=== PATIENT | female | born 1960 | race Caucasian/White ===

== ENCOUNTER → 2016-04-26 | Outpatient (CLI) | payer OTHER ==
[~2016-04-26] MED LIST: /ALBU4TAB INH; /CELE20CA; ACTI300C; ADV500INH INH; BIAX500T PO; CIPRPOW8; FLAG500T; No Historical Meds; OCEA0.65; PRED10TA PO; PRED5SOL2 PO; TESS100C PO
[2016-04-26 10:14] LABS: MEAN CORPUSCULAR HEMOGLOBIN 28.3 pg (27.0-33.0); MEAN CORPUSCULAR HGB CONC 34.2 g/dl (32.0-36.5); MEAN CORPUSCULAR VOLUME 82.5 fl (80.0-96.0); RED CELL DISTRIBUTION WIDTH 13.5 % (11.5-14.5); WHITE BLOOD COUNT 7.8 K/mm3 (4.0-10.0)
[2016-04-26 10:42] LABS: ALBUMIN 3.5 GM/DL (3.2-5.2); ALBUMIN/GLOBULIN RATIO 1.03 (1.00-1.93); ALKALINE PHOSPHATASE 69 U/L (45-117); ALT/SGPT 22 U/L (12-78); ANION GAP 9 MEQ/L (8-16); AST/SGOT 9 U/L (15-37); BILIRUBIN,TOTAL 0.5 MG/DL (0.2-1.0); BLOOD UREA NITROGEN 10 MG/DL (7-18); CALCIUM LEVEL 8.4 MG/DL (8.5-10.1); CARBON DIOXIDE LEVEL 26 MEQ/L (21-32); CHLORIDE LEVEL 104 MEQ/L (98-107); CHOLESTEROL LEVEL 166 MG/DL (<200); CREATININE FOR GFR 0.83 MG/DL (0.55-1.02); GLOMERULAR FILTRATION RATE > 60.0 (>51); GLUCOSE, FASTING 141 MG/DL (70-105); POTASSIUM SERUM 4.2 MEQ/L (3.5-5.1); SODIUM LEVEL 139 MEQ/L (136-145); TOTAL PROTEIN 6.9 GM/DL (6.4-8.2); TRIGLYCERIDES LEVEL 109 MG/DL (<150)
== END ==
LOC: M LAB 09:28
PROVIDERS: ATTEND Nurse Practitioner Family
DX: E78.4 Other hyperlipidemia (principal); R73.01 Impaired fasting glucose

== ENCOUNTER → 2016-06-22 | Outpatient (CLI) | payer OTHER | LOC: M SLEEP 19:41 | PROVIDERS: ATTEND Internal Medicine Pulmonary Disease | DX: G47.30 Sleep apnea, unspecified (principal) ==

== ENCOUNTER → 2017-01-24 | Outpatient (REF) | payer OTHER, MEDICAID ==
[~2017-01-24] MED LIST changes: +BREO1INH INH; +CETI10TA PO; +FLON1SPR; +FURO40TA2 PO; +GABA-279 PO; +INCR1INH INH; +IPRASOL4; +IPRASOL4 INH; +METF500T13 PO; +POTA20TA6 PO; +SERT-155 PO; +SERT25TA88; +VENTAER INH; +VITA1CAP40 PO; +ZOFR4TAB3 PO
[2017-01-24 13:27] LABS: ALBUMIN 3.6 GM/DL (3.2-5.2); ALBUMIN/GLOBULIN RATIO 1.13 (1.00-1.93); ALKALINE PHOSPHATASE 67 U/L (45-117); ALT/SGPT 24 U/L (12-78); ANION GAP 7 MEQ/L (8-16); AST/SGOT 7 U/L (15-37); BILIRUBIN,TOTAL 0.2 MG/DL (0.2-1.0); BLOOD UREA NITROGEN 13 MG/DL (7-18); CALCIUM LEVEL 8.8 MG/DL (8.5-10.1); CARBON DIOXIDE LEVEL 26 MEQ/L (21-32); CHLORIDE LEVEL 106 MEQ/L (98-107); CHOLESTEROL LEVEL 168 MG/DL (<200); CREATININE FOR GFR 0.88 MG/DL (0.55-1.02); GLOMERULAR FILTRATION RATE > 60.0 (>51); GLUCOSE, FASTING 176 MG/DL (70-105); SODIUM LEVEL 139 MEQ/L (136-145); TOTAL PROTEIN 6.8 GM/DL (6.4-8.2); TRIGLYCERIDES LEVEL 160 MG/DL (<150)
== END ==
LOC: M LAB REF 12:16
PROVIDERS: ATTEND Family Medicine Addiction Medicine
DX: E11.9 Type 2 diabetes mellitus without complications (principal)

== ENCOUNTER 2017-01-27 19:03 | Inpatient (IN) | payer MEDICAID, OTHER ==
[~2017-01-27] VITALS: Ht 162.6 cm; Wt 130.6 kg
[~2017-01-27 19:03] MED LIST changes: -BREO1INH INH; -CETI10TA PO; -FLON1SPR; -FURO40TA2 PO; -GABA-279 PO; -INCR1INH INH; -IPRASOL4; -IPRASOL4 INH; -METF500T13 PO; -POTA20TA6 PO; -SERT-155 PO; -SERT25TA88; -VENTAER INH; -VITA1CAP40 PO; -ZOFR4TAB3 PO
[2017-01-27] MEDS ORDERED: METF500T13 PO (19:22)
[2017-01-27] MEDS ORDERED: VENTAER INH (19:22)
[2017-01-27] MEDS ORDERED: IPRASOL4 (19:22)
[2017-01-27] MEDS ORDERED: INCR1INH INH (19:22)
[2017-01-27] MEDS ORDERED: FURO40TA2 PO (19:22)
[2017-01-27] MEDS ORDERED: SERT25TA88 (19:23)
[2017-01-27] MEDS ORDERED: VITA1CAP40 PO (19:23)
[2017-01-27] MEDS ORDERED: BREO1INH INH (19:23)
[2017-01-27] MEDS ORDERED: SERT-155 PO (19:23)
[2017-01-27] MEDS ORDERED: POTA20TA6 PO (19:23)
[2017-01-27] MEDS ORDERED: GABA-279 PO (19:23)
[2017-01-27] MEDS ORDERED: MORPHINE 4 MG/ML 1ML SYRINGE IV ONE ×2 (20:45→23:15)
[2017-01-27] MEDS ORDERED: NS 1,000 ML IV ONE (20:45)
[2017-01-27] MEDS ORDERED: ONDANSETRON 4MG/2ML VIAL (J2405) IV ONE (20:45)
[2017-01-27 21:17] LABS: BASO % 0.2 % (0.0-1.0); EOS % 0.1 % (0.0-3.0); IMMATURE GRANULOCYTE % 0.6 % (0-0); LYMPH # 1.3 10^3/uL (1.5-4.5); LYMPH % 12.2 % (24.0-44.0); MEAN CORPUSCULAR HEMOGLOBIN 27.3 pg (27.0-33.0); MEAN CORPUSCULAR HGB CONC 34.2 g/dl (32.0-36.5); MEAN CORPUSCULAR VOLUME 79.8 fl (80.0-96.0); MONO # 0.4 10^3/uL (0.0-0.8); MONO % 3.6 % (0.0-5.0); NEUTROPHILS # 8.8 10^3/uL (1.8-7.7); NEUTROPHILS % 83.3 % (36.0-66.0); PLATELET COUNT, AUTOMATED 359 10^3/uL (150-450); RED CELL DISTRIBUTION WIDTH 13.7 % (11.5-14.5); WHITE BLOOD COUNT 10.6 10^3/uL (4.0-10.0)
[2017-01-27 21:41] LABS: ALBUMIN 3.8 GM/DL (3.2-5.2); ALBUMIN/GLOBULIN RATIO 0.93 (1.00-1.93); ALKALINE PHOSPHATASE 84 U/L (45-117); ALT/SGPT 31 U/L (12-78); AMYLASE 24 U/L (25-115); ANION GAP 6 MEQ/L (8-16); AST/SGOT 14 U/L (15-37); BILIRUBIN,DIRECT 0.2 MG/DL (0.0-0.2); BILIRUBIN,TOTAL 0.6 MG/DL (0.2-1.0); BLOOD UREA NITROGEN 11 MG/DL (7-18); CALCIUM LEVEL 8.8 MG/DL (8.5-10.1); CARBON DIOXIDE LEVEL 27 MEQ/L (21-32); CHLORIDE LEVEL 102 MEQ/L (98-107); CREATININE FOR GFR 0.86 MG/DL (0.55-1.02); GLOMERULAR FILTRATION RATE > 60.0 (>51); GLUCOSE, FASTING 192 MG/DL (70-105); POTASSIUM SERUM 4.3 MEQ/L (3.5-5.1); SODIUM LEVEL 135 MEQ/L (136-145); TOTAL PROTEIN 7.9 GM/DL (6.4-8.2)
[2017-01-27] MEDS ORDERED: ISOVUE-370 76% 100ML VIAL (Q9967) As Ordered ONE (21:42)
[2017-01-27] MEDS ORDERED: IPRASOL4 INH (23:47)
[2017-01-27] MEDS ORDERED: FLON1SPR (23:53)
[2017-01-27] MEDS ORDERED: CETI10TA PO (23:53)
[2017-01-28] MEDS ORDERED: IPRATROPIUM 0.5MG/ALBUTEROL 2.5MG INH SOL UD 3ML (DUONEB)(J7620) INH PRN (00:45)
[2017-01-28] MEDS ORDERED: KETOROLAC 30 MG/ML VIAL (J1885) IV PRN (00:45)
[2017-01-28] MEDS ORDERED: NORCO, ANEXSIA 5/325MG TABLET (HYDROcodone/ACETAMINOPHEN) PO PRN (00:45)
[2017-01-28] MEDS ORDERED: ONDANSETRON 4MG/2ML VIAL (J2405) IV PRN (00:45)
[2017-01-28] MEDS ORDERED: SODIUM CHLORIDE NASAL 0.65% SPRAY BTL (OCEAN) PRN (00:45)
[2017-01-28] MEDS ORDERED: ACETAMINOPHEN TAB 650MG DOSE (2X325MG) PO PRN (00:45)
[2017-01-28] MEDS ORDERED: FLUTICASONE PROP 0.05% NASAL SPRAY 16 GM (FLONASE) PRN (00:45)
[2017-01-28] MEDS ORDERED: CIPROFLOXACIN 400 MG in APPROPRIATE DILUENT 1 EA IV SCH (01:00)
[2017-01-28 02:07] VITALS: BP 144/68
[2017-01-28] MEDS: MORPHINE 2 MG/ML 1ML SYRINGE IV PRN ×3 (02:12→09:32)
[2017-01-28] MEDS: LR 1,000 ML IV SCH ×2 (02:48→09:11)
[2017-01-28] MEDS: metroNIDAZOLE 500 MG in APPROPRIATE DILUENT 1 EA IV SCH ×2 (03:30→09:11)
[2017-01-28] MEDS: HEPARIN SOD (PORCINE) 5000 UNITS/ML VIAL SC SCH ×3 (05:33→21:12)
[2017-01-28 06:00] VITALS: BP 136/63
[2017-01-28 06:06] LABS: BASO % 0.2 % (0.0-1.0); EOS % 0.3 % (0.0-3.0); IMMATURE GRANULOCYTE % 0.5 % (0-0); LYMPH # 1.8 10^3/uL (1.5-4.5); MEAN CORPUSCULAR HEMOGLOBIN 26.6 pg (27.0-33.0); MEAN CORPUSCULAR HGB CONC 33.1 g/dl (32.0-36.5); MEAN CORPUSCULAR VOLUME 80.3 fl (80.0-96.0); MONO # 0.6 10^3/uL (0.0-0.8); MONO % 6.4 % (0.0-5.0); NEUTROPHILS # 6.4 10^3/uL (1.8-7.7); NEUTROPHILS % 72.6 % (36.0-66.0); PLATELET COUNT, AUTOMATED 330 10^3/uL (150-450); RED CELL DISTRIBUTION WIDTH 13.6 % (11.5-14.5); WHITE BLOOD COUNT 8.9 10^3/uL (4.0-10.0)
[2017-01-28 06:26] LABS: ANION GAP 6 MEQ/L (8-16); BLOOD UREA NITROGEN 8 MG/DL (7-18); CALCIUM LEVEL 8.4 MG/DL (8.5-10.1); CARBON DIOXIDE LEVEL 26 MEQ/L (21-32); CHLORIDE LEVEL 106 MEQ/L (98-107); CREATININE FOR GFR 0.79 MG/DL (0.55-1.02); GLOMERULAR FILTRATION RATE > 60.0 (>51); GLUCOSE, FASTING 157 MG/DL (70-105); SODIUM LEVEL 138 MEQ/L (136-145)
[2017-01-28] MEDS ORDERED: metFORMIN (GLUCOPHAGE) 500 MG TAB PO SCH (08:00)
[2017-01-28] MEDS: GABAPENTIN 100 MG CAP PO SCH ×3 (09:10→21:00)
[2017-01-28] MEDS: PANTOPRAZOLE 40MG INJ (PROTONIX) (C9113) IV SCH (09:10)
[2017-01-28] MEDS: FUROSEMIDE 40 MG TAB PO SCH (09:11)
[2017-01-28] MEDS: CETIRIZINE (ZyrTEC) 10 MG TAB PO SCH (09:11)
[2017-01-28] MEDS: SENOKOT S TAB PO SCH ×2 (09:11→21:11)
[2017-01-28] MEDS: SERTRALINE HCL 50 MG TAB PO SCH (09:11)
--- NOTE | 2017-01-28 11:54 | HPE ---
DATE OF ADMISSION: 01/28/2017 CHIEF COMPLAINT: Abdominal pain. HISTORY OF PRESENT ILLNESS: The patient is a 56-year-old female who presents with a history of an open cholecystectomy over 20 years ago and has had a large ventral incisional hernia since then. For the past 24 hours, she has had increasing pain around her hernia site radiating through to her back, so she came to the hospital for evaluation. In the emergency room (ER), she had a CT scan done, which showed likely partial small bowel obstruction secondary to large incarcerated loops of bowel in this hernia sac with nondilated loops of bowel within the hernia sac itself. Because of that, she was admitted to myself overnight. This morning, she denies any fevers or chills. No nausea or vomiting. She is passing flatus. No bowel movements in 2 days and all of her pain has resolved. She has never had any episodes of small bowel obstruction secondary to this hernia in the past, and she has never talked to anyone about having this repaired in the past either. PAST MEDICAL HISTORY: Chronic obstructive pulmonary disease (COPD). Diabetes. PAST SURGICAL HISTORY: Open cholecystectomy. ALLERGIES: PENICILLIN. HOME MEDICATIONS: Please see medical record (med rec). SOCIAL HISTORY: Smokes half a pack a day. Denies drug or alcohol abuse. FAMILY HISTORY: Noncontributory. REVIEW OF SYSTEMS: Pertinent positives and negatives as stated in the history of the present illness. PHYSICAL EXAMINATION: General: Alert and oriented times three, no acute stress. Vital Signs: Temperature 98.1, pulse 90, respirations 18, blood pressure 136/63, pulse oximetry 91% on room air. HEENT: Pupils equally round and react to light and accommodation. Heart: S1, S2, regular rate and rhythm. Lungs: Clear to auscultation bilaterally. Abdomen: Soft, obese, nontender, nondistended. Very large incarcerated incisional hernia in the right upper quadrant. This has some hard spots in it, but she says that is normal, does not feel any different to her currently than it normally does. Extremities: No clubbing, cyanosis or edema. LABORATORY DATA: White count 10.6 down to 8.9, hemoglobin 14.3, platelets 330, lactic acid 1.1, potassium 4. IMAGING: CT abdomen and pelvis demonstrates dilated loops of small bowel proximal to a large ventral hernia, which contains loops of nondilated small. ASSESSMENT AND PLAN: The patient is a 56-year-old female with an incarcerated incisional hernia in the right upper quadrant with loops of small bowel that is resulting in a small bowel obstruction. On exam, she is asymptomatic. The hernia is definitely nonreducible, and it appears as if her symptoms that brought her to the hospital have all resolved and she is currently passing flatus. Recommendation at this time is to start her on a clear liquid diet. Advised her to continue to ambulate, and as long as she continues to pass gas and tolerates a diet, has a bowel movement, then she will be discharged home. Following that, I have recommended that she consider stopping smoking and attempt to lose some weight, and we can discuss elective repair upon discharge. If she does not continue to improve and is unable to tolerate diet, then we will discuss operative management during this hospital stay.
[2017-01-28 14:00] VITALS: BP 156/81
--- NOTE | 2017-01-28 15:32 | REP ---
Clinical: Large painful ventral hernia. Technique: Axial contrast enhanced images from the lung bases to the pubic symphysis using the 100 ml Isovue 370 intravenous contrast material with coronal and sagittal re-formations. Findings: There is evidence for acute mid small bowel obstruction due to a large supraumbilical ventral hernia containing mesenteric fat and multiple loops of nonobstructed small bowel. Transition is identified at the afferent loop of small bowel entering the hernia likely due to adjacent compression with relatively nondilated loops of bowel identified within the hernia and efferent loop (images 60 - 127). No free air. No free fluid or drainable collection/abscess. No evidence for bowel perforation. Liver demonstrates pneumobilia with evidence for prior cholecystectomy and stent identified from the common bile duct to the duodenum. A subcentimeter hypodensity identified in the medial segment left lobe of liver (image 21) likely represents cyst. Spleen, pancreas, bilateral adrenal glands and right kidney are normal. Left kidney includes 1.9 cm exophytic hypodensity likely cyst (image 73). Pelvis demonstrates collapsed bladder and age-appropriate uterus/adnexa. No ascites. No significant intraperitoneal or retroperitoneal adenopathy. Abdominal aorta and vasculature without aneurysm or dissection. Osseous structures are intact without focal osseous abnormality. Impression: 1. Acute small-bowel obstruction secondary to large supraumbilical ventral hernia containing mesenteric fat and multiple loops of nonobstructed small bowel. The point of obstruction/transition is identified involving the afferent loop of bowel entering the hernia as noted above. No associated free air / perforation or drainable collection/abscess. 2. Pneumobilia and evidence for prior cholecystectomy with biliary stent identified. 3. Small hepatic and left renal hypodensities likely representing cysts. Signed by Aguilar Guo MD 01/28/2017 03:24 P
[2017-01-28 22:00] VITALS: BP 148/60
[2017-01-29] MEDS: HEPARIN SOD (PORCINE) 5000 UNITS/ML VIAL SC SCH ×2 (05:52→13:10)
[2017-01-29 06:00] VITALS: BP 150/62
[2017-01-29 06:29] LABS: MEAN CORPUSCULAR HGB CONC 33.3 g/dl (32.0-36.5); PLATELET COUNT, AUTOMATED 327 10^3/uL (150-450); RED CELL DISTRIBUTION WIDTH 13.9 % (11.5-14.5); WHITE BLOOD COUNT 10.7 10^3/uL (4.0-10.0)
[2017-01-29 06:35] LABS: ANION GAP 9 MEQ/L (8-16); BLOOD UREA NITROGEN 8 MG/DL (7-18); CALCIUM LEVEL 8.4 MG/DL (8.5-10.1); CARBON DIOXIDE LEVEL 27 MEQ/L (21-32); CHLORIDE LEVEL 101 MEQ/L (98-107); CREATININE FOR GFR 0.78 MG/DL (0.55-1.02); GLOMERULAR FILTRATION RATE > 60.0 (>51); GLUCOSE, FASTING 147 MG/DL (70-105); POTASSIUM SERUM 4.1 MEQ/L (3.5-5.1); SODIUM LEVEL 137 MEQ/L (136-145)
[2017-01-29] MEDS: PANTOPRAZOLE 40MG INJ (PROTONIX) (C9113) IV SCH (09:01)
[2017-01-29] MEDS: GABAPENTIN 100 MG CAP PO SCH ×2 (09:01→15:40)
[2017-01-29] MEDS: SENOKOT S TAB PO SCH (09:01)
[2017-01-29] MEDS: CETIRIZINE (ZyrTEC) 10 MG TAB PO SCH (09:02)
[2017-01-29] MEDS: SERTRALINE HCL 50 MG TAB PO SCH (09:02)
[2017-01-29] MEDS: FUROSEMIDE 40 MG TAB PO SCH (09:02)
[2017-01-29 14:00] VITALS: BP 161/86
[2017-01-30] MEDS ORDERED: ZOFR4TAB3 PO (01:39)
--- NOTE | 2017-01-30 13:06 | DSES ---
DATE OF ADMISSION: 01/28/2017 DATE OF DISCHARGE: 01/29/2017 ADMISSION DIAGNOSIS: Small bowel obstruction. DISCHARGE DIAGNOSIS: Small bowel obstruction with incarcerated incisional hernia. HOSPITAL COURSE: Patient is a 56-year-old female presents to the emergency room on 01/27/2017 with complaints of abdominal pain radiating into her back. These pains or new for her. She denied any nausea or vomiting. No other problem other than she had not had a bowel movement in a couple of days. In the ER, they had CAT scan done, which showed this large incarcerated hernia likely causing small bowel obstruction. She was admitted overnight. I saw her in the morning of 01/28/2017. By then, her pain was relieved. Her labs had returned to normal. She was passing lots of flatus and the plan was started on a clear liquid diet. She was started on clear liquids throughout the. On 01/28/2017, she did well, tolerated them. No problems with nausea or vomiting. No increase in pain and she was continuing to have flatus. All of her labs remained normal and plan was to discharge home. I discussed elective surgical repair with her during the stay. Recommended that she try to stop smoking and lose some weight if possible, and then she will be able to followup me in the office as an outpatient and we did discuss fixing this either laparoscopically or robotically as an elective. I also discussed the small bowel obstruction with her and that if she has any problems with increasing pain, nausea, vomiting or fevers that she should call my office or call the emergency room and then return for evaluation. In this case, she would likely need more of an urgent repair rather than waiting to do this electively. The patient agreed and understood and was discharged home in the afternoon of 01/29/2017.
== END 2017-01-29 15:45 | disposition home or self-care (01) | DRG 254 ==
LOC: M ED 19:03 → M ED INP 01-28 00:37 → M MSPAV 01-28 02:02
PROVIDERS: ADMIT Surgery; ATTEND Surgery
DX: K43.0 Incisional hernia with obstruction, without gangrene (principal); J44.9 Chronic obstructive pulmonary disease, unspecified; E11.9 Type 2 diabetes mellitus without complications; F17.210 Nicotine dependence, cigarettes, uncomplicated; Z90.49 Acquired absence of other specified parts of digestive tract; Z88.0 Allergy status to penicillin; Z79.899 Other long term (current) drug therapy

== ENCOUNTER 2017-01-29 21:19 | Emergency (ER) | payer OTHER ==
[~2017-01-29] VITALS: Ht 162.6 cm; Wt 127.3 kg
[~2017-01-29 21:19] MED LIST changes: +BREO1INH INH; +CETI10TA PO; +FLON1SPR; +FURO40TA2 PO; +GABA-279 PO; +INCR1INH INH; +IPRASOL4; +IPRASOL4 INH; +METF500T13 PO; +POTA20TA6 PO; +SERT-155 PO; +SERT25TA88; +VENTAER INH; +VITA1CAP40 PO
[2017-01-29] MEDS ORDERED: NS 1,000 ML IV ONE (22:00)
[2017-01-29] MEDS ORDERED: MORPHINE 4 MG/ML 1ML SYRINGE IV PRN (22:00)
[2017-01-29] MEDS ORDERED: ONDANSETRON 4MG/2ML VIAL (J2405) IV ONE (22:00)
[2017-01-29 22:25] LABS: BASO % 0.3 % (0.0-1.0); EOS % 0.3 % (0.0-3.0); IMMATURE GRANULOCYTE % 0.6 % (0-0); LYMPH # 1.7 10^3/uL (1.5-4.5); LYMPH % 14.8 % (24.0-44.0); MEAN CORPUSCULAR HEMOGLOBIN 27.2 pg (27.0-33.0); MEAN CORPUSCULAR HGB CONC 33.3 g/dl (32.0-36.5); MEAN CORPUSCULAR VOLUME 81.8 fl (80.0-96.0); MONO # 0.9 10^3/uL (0.0-0.8); MONO % 7.7 % (0.0-5.0); NEUTROPHILS # 8.8 10^3/uL (1.8-7.7); NEUTROPHILS % 76.3 % (36.0-66.0); PLATELET COUNT, AUTOMATED 304 10^3/uL (150-450); RED CELL DISTRIBUTION WIDTH 13.8 % (11.5-14.5); WHITE BLOOD COUNT 11.5 10^3/uL (4.0-10.0)
[2017-01-29 23:10] LABS: INR 1.06
[2017-01-29 23:31] LABS: ALBUMIN 3.4 GM/DL (3.2-5.2); ALBUMIN/GLOBULIN RATIO 0.83 (1.00-1.93); ALKALINE PHOSPHATASE 101 U/L (45-117); ALT/SGPT 92 U/L (12-78); ANION GAP 7 MEQ/L (8-16); AST/SGOT 23 U/L (15-37); BILIRUBIN,DIRECT 0.2 MG/DL (0.0-0.2); BILIRUBIN,TOTAL 0.6 MG/DL (0.2-1.0); BLOOD UREA NITROGEN 10 MG/DL (7-18); CALCIUM LEVEL 8.3 MG/DL (8.5-10.1); CARBON DIOXIDE LEVEL 28 MEQ/L (21-32); CHLORIDE LEVEL 98 MEQ/L (98-107); CREATININE FOR GFR 0.65 MG/DL (0.55-1.02); GLOMERULAR FILTRATION RATE > 60.0 (>51); GLUCOSE, FASTING 147 MG/DL (70-105); POTASSIUM SERUM 3.4 MEQ/L (3.5-5.1); SODIUM LEVEL 133 MEQ/L (136-145); TOTAL PROTEIN 7.5 GM/DL (6.4-8.2)
[2017-01-29] MEDS ORDERED: ISOVUE-370 76% 100ML VIAL (Q9967) As Ordered ONE (23:46)
--- NOTE | 2017-01-30 00:30 | REPUSA ---
CLINICAL HISTORY: Abdominal pain. TECHNIQUE: Multiple axial, sagittal and coronal CT images were obtained through the abdomen and pelvi s after administration of intravenous contrast material. COMMENTS: Moderate partial small bowel obstruction. Transition zone in the anterior abdominal wall periumbilical hernia. No bowel perforation or pneumatosis intestinalis. No evidence of ascites. Moderate hepatomegaly with fatty infiltration. Moderately dilated biliary tree. Stones and sludge are suspected in the distal aspect of the common bile duct. CBD stent is noted. Mild large bowel fecal stasis. Pneumobilia is noted. The spleen is normal. The gallbladder is surgically absent. The pancreas is of normal contour and att enuation characteristics. There is no evidence of adrenal mass. Both kidneys demonstrate prompt and equal nephrograms. The kidneys are normal in size, shape and conf iguration. There is no evidence of renal or ureteral mass. No renal or ureteral calculi are identifie d. There is no hydroureter or hydronephrosis. No evidence for appendicitis. There is no evidence of abdominal ascites or lymphadenopathy. There is no evidence of intrinsic or extrinsic bladder mass. There is no pelvic ascites or lymphadeno flor. Images of the lung bases show no evidence of pleural or parenchymal mass. There are no pleural effusi ons. The bony structures are free of lytic or blastic lesions. Multilevel degenerative changes are seen in volving the thoracolumbar spine. Scattered calcifications are seen involving the aorta and major bran ches compatible with atherosclerosis. IMPRESSION: Anterior abdominal hernia. Moderate partial small bowel obstruction. Dilated biliary tree. Pneumobilia. Suspected stones and sludge in the distal aspect of the common bile duct. No bowel perforation or pneumatosis intestinalis. No change from prior exam on 01/27/2017. Thank you for your kind referral of this patient.
[2017-01-30] MEDS ORDERED: ZOFR4TAB3 PO (01:39)
[2017-01-30] MEDS ORDERED: OXYCODONE/APAP 5MG/325MG(BULK FOR ED) 1 TABLET PO ONE (01:45)
[2017-01-30 01:55] VITALS: BP 143/71
--- NOTE | 2017-01-30 10:08 | ED PDOC ---
Post-Departure Follow-Up radiology report faxed to Lindsay Ruff MD Jan 30, 2017 10:08
== END 2017-01-30 02:02 | disposition home or self-care (01) ==
LOC: M ED 21:19
DX: K56.690 Other partial intestinal obstruction (principal); K42.9 Umbilical hernia without obstruction or gangrene; Z79.899 Other long term (current) drug therapy; Z79.51 Long term (current) use of inhaled steroids; Z88.0 Allergy status to penicillin
CPT/HCPCS: 36415; 74177; 80048; 80076; 83605; 83690; 85025; 85610; 85730; 86850; 86900; 86901; 93041; 96361; 96374; 96375; 99284; J2405; Q9967

== ENCOUNTER 2017-04-03 19:56 | Inpatient (IN) | payer OTHER ==
[2017-04-03] MEDS: CLINDAMYCIN 900 MG in APPROPRIATE DILUENT 1 EA IV (22:45)
[2017-04-03 23:04] LABS: INR 1.18; PROTHROMBIN TIME 15.2 SECONDS (12.4-14.5)
[2017-04-03 23:05] LABS: PARTIAL THROMBOPLASTIN TIME 33.9 SECONDS (26.8-37.9)
[2017-04-03 23:08] LABS: ALBUMIN 2.8 GM/DL (3.2-5.2); ALBUMIN/GLOBULIN RATIO 0.68 (1.00-1.93); ALKALINE PHOSPHATASE 90 U/L (45-117); ALT/SGPT 20 U/L (12-78); ANION GAP 8 MEQ/L (8-16); AST/SGOT 14 U/L (7-37); BILIRUBIN,DIRECT 0.2 MG/DL (0.0-0.2); BILIRUBIN,TOTAL 0.4 MG/DL (0.2-1.0); BLOOD UREA NITROGEN 8 MG/DL (7-18); CALCIUM LEVEL 8.5 MG/DL (8.5-10.1); CARBON DIOXIDE LEVEL 27 MEQ/L (21-32); CHLORIDE LEVEL 104 MEQ/L (98-107); CREATININE FOR GFR 0.76 MG/DL (0.55-1.02); GLOMERULAR FILTRATION RATE > 60.0 (>51); GLUCOSE, FASTING 136 MG/DL (70-105); SODIUM LEVEL 139 MEQ/L (136-145); TOTAL PROTEIN 6.9 GM/DL (6.4-8.2)
[2017-04-03 23:10] LABS: LACTIC ACID SEPSIS PROTOCOL 2.1 MMOL/L (0.4-2.0)
[2017-04-03 23:17] LABS: BASO % 0.2 % (0.0-1.0); EOS % 0.1 % (0.0-3.0); HEMATOCRIT 40.6 % (36.0-47.0); HEMOGLOBIN 13.4 g/dl (12.0-16.0); IMMATURE GRANULOCYTE # 0.2 10^3/uL (0-0); LYMPH # 2.4 10^3/uL (1.5-4.5); LYMPH % 13.8 % (24.0-44.0); MEAN CORPUSCULAR HEMOGLOBIN 27.1 pg (27.0-33.0); MEAN CORPUSCULAR VOLUME 82.2 fl (80.0-96.0); NEUTROPHILS # 13.7 10^3/uL (1.8-7.7); NEUTROPHILS % 78.9 % (36.0-66.0); PLATELET COUNT, AUTOMATED 495 10^3/uL (150-450); RED BLOOD COUNT 4.94 10^6/uL (4.00-5.40); RED CELL DISTRIBUTION WIDTH 14.6 % (11.5-14.5); WHITE BLOOD COUNT 17.3 10^3/uL (4.0-10.0)
[2017-04-03] MEDS: NS 500 ML IV (23:20)
[2017-04-03] MEDS: TRIMETHOPRIM/SULFAMETHOXAZOLE 500 MG in D5W 500 ML IV (23:20)
[2017-04-03] MEDS: GASTROGRAFIN SOLUTION 30ML (Q9963) PO ×2 (23:24)
[2017-04-03] MEDS: MORPHINE 4 MG/ML 1ML SYRINGE IV (23:25)
[2017-04-03] MEDS: NS 1,000 ML IV (23:30)
[2017-04-03] MEDS ORDERED: ISOVUE-370 76% 100ML VIAL (Q9967) As Ordered (23:39)
[2017-04-04] MEDS ORDERED: ISOVUE-370 76% 100ML VIAL (Q9967) As Ordered (00:16)
[2017-04-04] MEDS: LR 1,000 ML IV ×5 (04:12→21:50)
[2017-04-04] MEDS ORDERED: ACETAMINOPHEN TAB 650MG DOSE (2X325MG) PO (04:15)
[2017-04-04] MEDS ORDERED: FLUTICASONE PROP 0.05% NASAL SPRAY 16 GM (FLONASE) (04:15)
[2017-04-04] MEDS ORDERED: ALBUTEROL 90 MCG/ACT 8GM HFA INHALER INH (04:15)
[2017-04-04] MEDS: MORPHINE 4 MG/ML 1ML SYRINGE IV (04:15)
[2017-04-04] MEDS ORDERED: ONDANSETRON 4MG/2ML VIAL (J2405) IV ×3 (04:15→14:30)
[2017-04-04] MEDS ORDERED: PERCOCET 5MG/325MG TAB PO (04:15)
[2017-04-04] MEDS: PERCOCET 5MG/325MG TAB PO (08:00)
[2017-04-04] MEDS: IPRATROPIUM 0.5MG/ALBUTEROL 2.5MG INH SOL UD 3ML (DUONEB)(J7620) INH ×2 (08:15→21:23)
[2017-04-04] MEDS: ALVIMOPAN 12 MG CAPSULE (ENTEREG) PO ×2 (09:00→21:11)
[2017-04-04] MEDS: SERTRALINE HCL 50 MG TAB PO (09:00)
[2017-04-04] MEDS: SENOKOT S TAB PO ×2 (09:00→21:11)
[2017-04-04] MEDS: CLINDAMYCIN 600 MG in APPROPRIATE DILUENT 1 EA IV ×3 (09:46→21:11)
[2017-04-04] MEDS ORDERED: MIDAZOLAM INJ 2 MG/2 ML VIAL (J2250) As Ordered ×2 (10:23→12:32)
[2017-04-04] MEDS ORDERED: fentaNYL 100 MCG/2 ML INJECTION (J3010) As Ordered (10:23)
[2017-04-04] MEDS: LevoFLOXacin(LEVAQUIN)500 MG/100 ML BAG (J1956) As Ordered (10:35)
[2017-04-04] MEDS: MIDAZOLAM INJ 2 MG/2 ML VIAL (J2250) IV (10:39)
[2017-04-04] MEDS: fentaNYL 100 MCG/2 ML INJECTION (J3010) IV (10:39)
[2017-04-04] MEDS ORDERED: WALLBOXKEY XX (11:15)
[2017-04-04] MEDS ORDERED: NALOXONE INJ 0.4 MG/1 ML VIAL (J2310) IV (11:15)
[2017-04-04] MEDS: FENTANYL/BUPIVACAINE/NACL BAG 250 ML EPIDURAL (11:15)
[2017-04-04] MEDS ORDERED: diphenhydrAMINE INJ 50MG/ML VIAL (J1200) IV (11:15)
[2017-04-04] MEDS ORDERED: METOCLOPRAMIDE INJ 10MG/2ML VIAL (J2765) IV (11:15)
[2017-04-04] MEDS ORDERED: EPIDURAL/PCA KEYS XX (11:15)
[2017-04-04] MEDS: LevoFLOXacin IV 750 MG in APPROPRIATE DILUENT 1 EA IV (11:34)
[2017-04-04] MEDS ORDERED: BUPIVACAINE HCL 0.25% 30 ML VIAL As Ordered (12:32)
[2017-04-04] MEDS ORDERED: fentaNYL 250 MCG/5 ML INJECTION (J3010) As Ordered (12:32)
[2017-04-04] MEDS ORDERED: PROPOFOL 200 MG/20 ML VIAL As Ordered (12:32)
[2017-04-04] MEDS ORDERED: dexameTHASONE 4 MG/ML 1ML VIAL (J1100) As Ordered (12:32)
[2017-04-04] MEDS ORDERED: LIDOCAINE 2% INJ 100 MG/5 ML SDV (FOR ANES.) As Ordered (12:32)
[2017-04-04] MEDS ORDERED: ROCURONIUM BROMIDE 50 MG/5 ML VIAL As Ordered ×2 (12:32→12:50)
[2017-04-04] MEDS ORDERED: ONDANSETRON 4MG/2ML VIAL (J2405) As Ordered (12:32)
[2017-04-04] MEDS ORDERED: NEOSTIGMINE 10 MG/10 ML VIAL (J2710) As Ordered (12:51)
[2017-04-04] MEDS ORDERED: GLYCOPYRROLATE INJ 0.2 MG/ML 2 ML VIAL As Ordered ×3 (12:51)
[2017-04-04] MEDS ORDERED: FENTANYL 2MCG/ML BUPIVACAINE 0.0625% NACL 250ML IV BAG As Ordered (13:51)
[2017-04-04] MEDS ORDERED: LEVALBUTEROL 1.25 MG/0.5 ML CONCENTRATE NEB As Ordered (14:19)
[2017-04-04] MEDS ORDERED: fentaNYL 100 MCG/2 ML INJECTION (J3010) IV (14:30)
[2017-04-04] MEDS ORDERED: MORPHINE 10 MG/ML 1ML VIAL IV (14:30)
[2017-04-04] MEDS: CETIRIZINE (ZyrTEC) 10 MG TAB PO (16:47)
[2017-04-04] MEDS ORDERED: INFLUENZA QUADRIVALENT PF VACCINE 0.5ML SYRINGE (90686) IM (17:00)
[2017-04-05] MEDS: CLINDAMYCIN 600 MG in APPROPRIATE DILUENT 1 EA IV ×4 (03:16→22:08)
[2017-04-05] MEDS: LR 1,000 ML IV ×3 (03:17→20:30)
[2017-04-05] MEDS: IPRATROPIUM 0.5MG/ALBUTEROL 2.5MG INH SOL UD 3ML (DUONEB)(J7620) INH ×4 (03:22→23:46)
[2017-04-05 05:11] LABS: BASO % 0.2 % (0.0-1.0); HEMATOCRIT 32.8 % (36.0-47.0); IMMATURE GRANULOCYTE # 0.1 10^3/uL (0-0); IMMATURE GRANULOCYTE % 0.5 % (0-0); LYMPH # 1.4 10^3/uL (1.5-4.5); LYMPH % 10.8 % (24.0-44.0); MEAN CORPUSCULAR HEMOGLOBIN 26.7 pg (27.0-33.0); MEAN CORPUSCULAR HGB CONC 32.9 g/dl (32.0-36.5); MEAN CORPUSCULAR VOLUME 81.2 fl (80.0-96.0); MONO # 0.6 10^3/uL (0.0-0.8); MONO % 4.6 % (0.0-5.0); NEUTROPHILS # 11.2 10^3/uL (1.8-7.7); NEUTROPHILS % 83.9 % (36.0-66.0); PLATELET COUNT, AUTOMATED 407 10^3/uL (150-450); RED BLOOD COUNT 4.04 10^6/uL (4.00-5.40); RED CELL DISTRIBUTION WIDTH 14.7 % (11.5-14.5); WHITE BLOOD COUNT 13.3 10^3/uL (4.0-10.0)
[2017-04-05 05:22] LABS: HEMOGLOBIN 10.8 g/dl (12.0-16.0)
[2017-04-05 05:25] LABS: ANION GAP 8 MEQ/L (8-16); BLOOD UREA NITROGEN 9 MG/DL (7-18); CALCIUM LEVEL 8.2 MG/DL (8.5-10.1); CARBON DIOXIDE LEVEL 26 MEQ/L (21-32); CHLORIDE LEVEL 107 MEQ/L (98-107); CREATININE FOR GFR 0.64 MG/DL (0.55-1.02); GLOMERULAR FILTRATION RATE > 60.0 (>51); GLUCOSE, FASTING 133 MG/DL (70-105); POTASSIUM SERUM 4.5 MEQ/L (3.5-5.1); SODIUM LEVEL 141 MEQ/L (136-145)
[2017-04-05] MEDS: HEPARIN SOD (PORCINE) 5000 UNITS/ML VIAL SQ ×3 (05:50→22:07)
[2017-04-05] MEDS: CETIRIZINE (ZyrTEC) 10 MG TAB PO (08:02)
[2017-04-05] MEDS: SENOKOT S TAB PO ×2 (08:02→21:00)
[2017-04-05] MEDS: ALVIMOPAN 12 MG CAPSULE (ENTEREG) PO ×2 (08:02→22:07)
[2017-04-05] MEDS: SERTRALINE HCL 50 MG TAB PO ×3 (08:02→09:00)
[2017-04-05] MEDS ORDERED: SODIUM CHLORIDE NASAL 0.65% SPRAY BTL (OCEAN) (08:15)
[2017-04-05] MEDS: GABAPENTIN 100 MG CAP PO ×3 (10:11→22:07)
[2017-04-05] MEDS: FUROSEMIDE 80 MG TAB PO (10:12)
[2017-04-05] MEDS: POTASSIUM CHLORIDE 10 MEQ SR TABLET PO (10:12)
[2017-04-05] MEDS: LevoFLOXacin IV 750 MG in APPROPRIATE DILUENT 1 EA IV (11:26)
[2017-04-05] MEDS: FENTANYL/BUPIVACAINE/NACL BAG 250 ML EPIDURAL (12:19)
[2017-04-06] MEDS: CLINDAMYCIN 600 MG in APPROPRIATE DILUENT 1 EA IV ×4 (03:31→21:24)
[2017-04-06] MEDS: HEPARIN SOD (PORCINE) 5000 UNITS/ML VIAL SQ ×3 (05:21→21:24)
[2017-04-06 06:17] LABS: BASO % 0.5 % (0.0-1.0); EOS % 0.4 % (0.0-3.0); HEMOGLOBIN 10.7 g/dl (12.0-16.0); IMMATURE GRANULOCYTE # 0.2 10^3/uL (0-0); IMMATURE GRANULOCYTE % 2.6 % (0-0); LYMPH # 2.3 10^3/uL (1.5-4.5); LYMPH % 26.9 % (24.0-44.0); MEAN CORPUSCULAR HEMOGLOBIN 26.7 pg (27.0-33.0); MEAN CORPUSCULAR HGB CONC 32.4 g/dl (32.0-36.5); MEAN CORPUSCULAR VOLUME 82.3 fl (80.0-96.0); MONO # 0.5 10^3/uL (0.0-0.8); NEUTROPHILS # 5.3 10^3/uL (1.8-7.7); NEUTROPHILS % 63.6 % (36.0-66.0); PLATELET COUNT, AUTOMATED 444 10^3/uL (150-450); RED BLOOD COUNT 4.01 10^6/uL (4.00-5.40); WHITE BLOOD COUNT 8.4 10^3/uL (4.0-10.0)
[2017-04-06 06:34] LABS: ANION GAP 8 MEQ/L (8-16); BLOOD UREA NITROGEN 9 MG/DL (7-18); CALCIUM LEVEL 7.9 MG/DL (8.5-10.1); CARBON DIOXIDE LEVEL 28 MEQ/L (21-32); CHLORIDE LEVEL 105 MEQ/L (98-107); CREATININE FOR GFR 0.67 MG/DL (0.55-1.02); GLOMERULAR FILTRATION RATE > 60.0 (>51); GLUCOSE, FASTING 82 MG/DL (70-105); POTASSIUM SERUM 3.9 MEQ/L (3.5-5.1); SODIUM LEVEL 141 MEQ/L (136-145)
[2017-04-06] MEDS: IPRATROPIUM 0.5MG/ALBUTEROL 2.5MG INH SOL UD 3ML (DUONEB)(J7620) INH (08:16)
[2017-04-06] MEDS: SENOKOT S TAB PO ×2 (09:00→20:37)
[2017-04-06] MEDS: ALVIMOPAN 12 MG CAPSULE (ENTEREG) PO ×2 (09:08→20:37)
[2017-04-06] MEDS: GABAPENTIN 100 MG CAP PO ×3 (09:09→20:37)
[2017-04-06] MEDS: CETIRIZINE (ZyrTEC) 10 MG TAB PO (09:09)
[2017-04-06] MEDS: POTASSIUM CHLORIDE 10 MEQ SR TABLET PO (09:09)
[2017-04-06] MEDS: FUROSEMIDE 80 MG TAB PO (09:09)
[2017-04-06] MEDS: SERTRALINE HCL 50 MG TAB PO (09:09)
[2017-04-06] MEDS: LevoFLOXacin IV 750 MG in APPROPRIATE DILUENT 1 EA IV (11:34)
[2017-04-06] MEDS: FENTANYL/BUPIVACAINE/NACL BAG 250 ML EPIDURAL (15:01)
[2017-04-06] MEDS: LR 1,000 ML IV (16:19)
[2017-04-07] MEDS: CLINDAMYCIN 600 MG in APPROPRIATE DILUENT 1 EA IV (03:18)
[2017-04-07] MEDS: LR 1,000 ML IV (05:49)
[2017-04-07] MEDS: HEPARIN SOD (PORCINE) 5000 UNITS/ML VIAL SQ ×3 (05:49→22:00)
[2017-04-07 05:50] LABS: BASO # 0.1 10^3/uL (0.0-0.2); BASO % 0.8 % (0.0-1.0); EOS # 0.1 10^3/uL (0.0-0.50); EOS % 0.9 % (0.0-3.0); HEMATOCRIT 33.9 % (36.0-47.0); HEMOGLOBIN 11.3 g/dl (12.0-16.0); IMMATURE GRANULOCYTE # 0.3 10^3/uL (0-0); IMMATURE GRANULOCYTE % 4.1 % (0-0); LYMPH # 1.9 10^3/uL (1.5-4.5); LYMPH % 25.4 % (24.0-44.0); MEAN CORPUSCULAR HEMOGLOBIN 27.3 pg (27.0-33.0); MEAN CORPUSCULAR HGB CONC 33.3 g/dl (32.0-36.5); MEAN CORPUSCULAR VOLUME 81.9 fl (80.0-96.0); MONO # 0.5 10^3/uL (0.0-0.8); MONO % 6.5 % (0.0-5.0); NEUTROPHILS # 4.7 10^3/uL (1.8-7.7); NEUTROPHILS % 62.3 % (36.0-66.0); PLATELET COUNT, AUTOMATED 462 10^3/uL (150-450); RED BLOOD COUNT 4.14 10^6/uL (4.00-5.40); RED CELL DISTRIBUTION WIDTH 14.6 % (11.5-14.5); WHITE BLOOD COUNT 7.6 10^3/uL (4.0-10.0)
[2017-04-07 06:06] LABS: ANION GAP 8 MEQ/L (8-16); BLOOD UREA NITROGEN 5 MG/DL (7-18); CALCIUM LEVEL 8.3 MG/DL (8.5-10.1); CARBON DIOXIDE LEVEL 28 MEQ/L (21-32); CHLORIDE LEVEL 103 MEQ/L (98-107); GLOMERULAR FILTRATION RATE > 60.0 (>51); GLUCOSE, FASTING 106 MG/DL (70-105); POTASSIUM SERUM 3.8 MEQ/L (3.5-5.1); SODIUM LEVEL 139 MEQ/L (136-145)
[2017-04-07] MEDS: CETIRIZINE (ZyrTEC) 10 MG TAB PO (09:49)
[2017-04-07] MEDS: GABAPENTIN 100 MG CAP PO ×3 (09:49→20:30)
[2017-04-07] MEDS: BACTRIM 160MG/800MG DS TAB PO ×2 (09:49→20:30)
[2017-04-07] MEDS: POTASSIUM CHLORIDE 10 MEQ SR TABLET PO (09:49)
[2017-04-07] MEDS: ALVIMOPAN 12 MG CAPSULE (ENTEREG) PO ×2 (09:50→20:30)
[2017-04-07] MEDS: FUROSEMIDE 80 MG TAB PO (09:50)
[2017-04-07] MEDS: SERTRALINE HCL 50 MG TAB PO (09:50)
[2017-04-07] MEDS: SENOKOT S TAB PO ×2 (09:50→20:31)
[2017-04-07] MEDS: IPRATROPIUM 0.5MG/ALBUTEROL 2.5MG INH SOL UD 3ML (DUONEB)(J7620) INH (09:59)
[2017-04-07] MEDS: NORCO, ANEXSIA 5/325MG TABLET (HYDROcodone/ACETAMINOPHEN) PO ×2 (11:31→17:48)
[2017-04-07] MEDS: MORPHINE 4 MG/ML 1ML SYRINGE IV (13:38)
[2017-04-08] MEDS: IPRATROPIUM 0.5MG/ALBUTEROL 2.5MG INH SOL UD 3ML (DUONEB)(J7620) INH (00:04)
[2017-04-08] MEDS: HEPARIN SOD (PORCINE) 5000 UNITS/ML VIAL SQ ×3 (05:23→21:46)
[2017-04-08] MEDS: NORCO, ANEXSIA 5/325MG TABLET (HYDROcodone/ACETAMINOPHEN) PO ×3 (05:23→18:45)
[2017-04-08 06:09] LABS: BASO # 0.1 10^3/uL (0.0-0.2); BASO % 0.7 % (0.0-1.0); EOS # 0.1 10^3/uL (0.0-0.50); EOS % 1.1 % (0.0-3.0); HEMATOCRIT 34.8 % (36.0-47.0); HEMOGLOBIN 11.3 g/dl (12.0-16.0); IMMATURE GRANULOCYTE # 0.3 10^3/uL (0-0); IMMATURE GRANULOCYTE % 3.6 % (0-0); LYMPH # 1.8 10^3/uL (1.5-4.5); LYMPH % 22.4 % (24.0-44.0); MEAN CORPUSCULAR HEMOGLOBIN 26.4 pg (27.0-33.0); MEAN CORPUSCULAR HGB CONC 32.5 g/dl (32.0-36.5); MEAN CORPUSCULAR VOLUME 81.3 fl (80.0-96.0); MONO # 0.5 10^3/uL (0.0-0.8); MONO % 5.6 % (0.0-5.0); NEUTROPHILS # 5.5 10^3/uL (1.8-7.7); NEUTROPHILS % 66.6 % (36.0-66.0); PLATELET COUNT, AUTOMATED 477 10^3/uL (150-450); RED BLOOD COUNT 4.28 10^6/uL (4.00-5.40); RED CELL DISTRIBUTION WIDTH 14.9 % (11.5-14.5); WHITE BLOOD COUNT 8.2 10^3/uL (4.0-10.0)
[2017-04-08 06:36] LABS: ANION GAP 10 MEQ/L (8-16); BLOOD UREA NITROGEN 5 MG/DL (7-18); CALCIUM LEVEL 8.4 MG/DL (8.5-10.1); CARBON DIOXIDE LEVEL 27 MEQ/L (21-32); CHLORIDE LEVEL 104 MEQ/L (98-107); CREATININE FOR GFR 0.72 MG/DL (0.55-1.02); GLOMERULAR FILTRATION RATE > 60.0 (>51); GLUCOSE, FASTING 127 MG/DL (70-105); POTASSIUM SERUM 4.2 MEQ/L (3.5-5.1); SODIUM LEVEL 141 MEQ/L (136-145)
[2017-04-08] MEDS: SERTRALINE HCL 50 MG TAB PO (09:55)
[2017-04-08] MEDS: GABAPENTIN 100 MG CAP PO ×3 (09:55→21:46)
[2017-04-08] MEDS: SENOKOT S TAB PO ×2 (09:55→21:46)
[2017-04-08] MEDS: FUROSEMIDE 80 MG TAB PO (09:55)
[2017-04-08] MEDS: BACTRIM 160MG/800MG DS TAB PO ×2 (09:55→21:46)
[2017-04-08] MEDS: ALVIMOPAN 12 MG CAPSULE (ENTEREG) PO ×2 (09:55→21:46)
[2017-04-08] MEDS: POTASSIUM CHLORIDE 10 MEQ SR TABLET PO (09:56)
[2017-04-08] MEDS: CETIRIZINE (ZyrTEC) 10 MG TAB PO (09:56)
[2017-04-09] MEDS: HEPARIN SOD (PORCINE) 5000 UNITS/ML VIAL SQ ×3 (05:29→21:38)
[2017-04-09] MEDS: NORCO, ANEXSIA 5/325MG TABLET (HYDROcodone/ACETAMINOPHEN) PO ×2 (05:39→18:12)
[2017-04-09] MEDS: IPRATROPIUM 0.5MG/ALBUTEROL 2.5MG INH SOL UD 3ML (DUONEB)(J7620) INH (06:07)
[2017-04-09 06:56] LABS: ANION GAP 7 MEQ/L (8-16); BLOOD UREA NITROGEN 8 MG/DL (7-18); CALCIUM LEVEL 9.2 MG/DL (8.5-10.1); CARBON DIOXIDE LEVEL 28 MEQ/L (21-32); CHLORIDE LEVEL 103 MEQ/L (98-107); CREATININE FOR GFR 0.89 MG/DL (0.55-1.02); GLOMERULAR FILTRATION RATE > 60.0 (>51); GLUCOSE, FASTING 113 MG/DL (70-105); POTASSIUM SERUM 4.5 MEQ/L (3.5-5.1); SODIUM LEVEL 138 MEQ/L (136-145)
[2017-04-09] MEDS: FUROSEMIDE 80 MG TAB PO (09:20)
[2017-04-09] MEDS: BACTRIM 160MG/800MG DS TAB PO ×2 (09:20→21:38)
[2017-04-09] MEDS: CETIRIZINE (ZyrTEC) 10 MG TAB PO (09:20)
[2017-04-09] MEDS: POTASSIUM CHLORIDE 10 MEQ SR TABLET PO (09:20)
[2017-04-09] MEDS: SERTRALINE HCL 50 MG TAB PO (09:20)
[2017-04-09] MEDS: SENOKOT S TAB PO ×2 (09:21→21:37)
[2017-04-09] MEDS: GABAPENTIN 100 MG CAP PO ×3 (09:21→21:38)
[2017-04-09] MEDS: VITAMIN D 50,000 UNITS CAPSULE (ERGOCALCIFEROL 1.25MG) PO (09:21)
[2017-04-10] MEDS: HEPARIN SOD (PORCINE) 5000 UNITS/ML VIAL SQ ×3 (05:02→21:14)
[2017-04-10] MEDS: NORCO, ANEXSIA 5/325MG TABLET (HYDROcodone/ACETAMINOPHEN) PO ×3 (05:43→18:55)
[2017-04-10 07:15] LABS: BASO % 0.3 % (0.0-1.0); EOS # 0.1 10^3/uL (0.0-0.50); EOS % 1.2 % (0.0-3.0); HEMATOCRIT 36.4 % (36.0-47.0); HEMOGLOBIN 11.8 g/dl (12.0-16.0); IMMATURE GRANULOCYTE # 0.1 10^3/uL (0-0); IMMATURE GRANULOCYTE % 1.6 % (0-0); LYMPH # 2.2 10^3/uL (1.5-4.5); LYMPH % 23.9 % (24.0-44.0); MEAN CORPUSCULAR HEMOGLOBIN 26.5 pg (27.0-33.0); MEAN CORPUSCULAR HGB CONC 32.4 g/dl (32.0-36.5); MEAN CORPUSCULAR VOLUME 81.6 fl (80.0-96.0); MONO # 0.6 10^3/uL (0.0-0.8); MONO % 6.9 % (0.0-5.0); NEUTROPHILS % 66.1 % (36.0-66.0); PLATELET COUNT, AUTOMATED 429 10^3/uL (150-450); RED BLOOD COUNT 4.46 10^6/uL (4.00-5.40); RED CELL DISTRIBUTION WIDTH 15.1 % (11.5-14.5)
[2017-04-10 07:48] LABS: ANION GAP 9 MEQ/L (8-16); BLOOD UREA NITROGEN 9 MG/DL (7-18); CALCIUM LEVEL 8.8 MG/DL (8.5-10.1); CARBON DIOXIDE LEVEL 26 MEQ/L (21-32); CHLORIDE LEVEL 101 MEQ/L (98-107); CREATININE FOR GFR 0.85 MG/DL (0.55-1.02); GLOMERULAR FILTRATION RATE > 60.0 (>51); GLUCOSE, FASTING 123 MG/DL (70-105); POTASSIUM SERUM 4.2 MEQ/L (3.5-5.1); SODIUM LEVEL 136 MEQ/L (136-145)
[2017-04-10] MEDS: BACTRIM 160MG/800MG DS TAB PO ×2 (09:10→21:13)
[2017-04-10] MEDS: FUROSEMIDE 80 MG TAB PO (09:10)
[2017-04-10] MEDS: SERTRALINE HCL 50 MG TAB PO (09:11)
[2017-04-10] MEDS: SENOKOT S TAB PO ×2 (09:11→21:13)
[2017-04-10] MEDS: CETIRIZINE (ZyrTEC) 10 MG TAB PO (09:11)
[2017-04-10] MEDS: GABAPENTIN 100 MG CAP PO ×3 (09:11→21:13)
[2017-04-10] MEDS: POTASSIUM CHLORIDE 10 MEQ SR TABLET PO (09:12)
[2017-04-11] MEDS: NORCO, ANEXSIA 5/325MG TABLET (HYDROcodone/ACETAMINOPHEN) PO ×2 (03:57→14:11)
[2017-04-11] MEDS: HEPARIN SOD (PORCINE) 5000 UNITS/ML VIAL SQ ×2 (05:08→14:00)
[2017-04-11 06:15] LABS: BASO % 0.2 % (0.0-1.0); EOS # 0.1 10^3/uL (0.0-0.50); HEMATOCRIT 37.8 % (36.0-47.0); HEMOGLOBIN 12.4 g/dl (12.0-16.0); IMMATURE GRANULOCYTE # 0.1 10^3/uL (0-0); IMMATURE GRANULOCYTE % 0.8 % (0-0); LYMPH % 22.4 % (24.0-44.0); MEAN CORPUSCULAR HEMOGLOBIN 26.7 pg (27.0-33.0); MEAN CORPUSCULAR HGB CONC 32.8 g/dl (32.0-36.5); MEAN CORPUSCULAR VOLUME 81.5 fl (80.0-96.0); MONO # 0.7 10^3/uL (0.0-0.8); MONO % 7.9 % (0.0-5.0); NEUTROPHILS # 6.2 10^3/uL (1.8-7.7); NEUTROPHILS % 67.7 % (36.0-66.0); PLATELET COUNT, AUTOMATED 405 10^3/uL (150-450); RED BLOOD COUNT 4.64 10^6/uL (4.00-5.40); RED CELL DISTRIBUTION WIDTH 15.1 % (11.5-14.5); WHITE BLOOD COUNT 9.1 10^3/uL (4.0-10.0)
[2017-04-11 06:27] LABS: ANION GAP 8 MEQ/L (8-16); BLOOD UREA NITROGEN 13 MG/DL (7-18); CARBON DIOXIDE LEVEL 28 MEQ/L (21-32); CHLORIDE LEVEL 101 MEQ/L (98-107); CREATININE FOR GFR 0.93 MG/DL (0.55-1.02); GLOMERULAR FILTRATION RATE > 60.0 (>51); GLUCOSE, FASTING 132 MG/DL (70-105); POTASSIUM SERUM 4.4 MEQ/L (3.5-5.1); SODIUM LEVEL 137 MEQ/L (136-145)
[2017-04-11] MEDS: FUROSEMIDE 80 MG TAB PO (08:22)
[2017-04-11] MEDS: CETIRIZINE (ZyrTEC) 10 MG TAB PO (08:22)
[2017-04-11] MEDS: SERTRALINE HCL 50 MG TAB PO (08:22)
[2017-04-11] MEDS: BACTRIM 160MG/800MG DS TAB PO (08:22)
[2017-04-11] MEDS: SENOKOT S TAB PO (08:23)
[2017-04-11] MEDS: GABAPENTIN 100 MG CAP PO (08:23)
[2017-04-11] MEDS: POTASSIUM CHLORIDE 10 MEQ SR TABLET PO (08:23)
== END 2017-04-11 15:04 | disposition home health service (06) | DRG 221 ==
LOC: M ED INP 04-04 04:12 → M MSPAV 04-05 13:07 → M ED 19:56 → M ICU 04-04 15:30
PROC: 0DB80ZZ Excision of Small Intestine, Open Approach (ICD-10-PCS; principal; 2017-04-04 09:24)
PROC: 0JB80ZZ Excision of Abdomen Subcutaneous Tissue and Fascia, Open Approach (ICD-10-PCS; 2017-04-04 09:24)
DX: K43.0 Incisional hernia with obstruction, without gangrene (principal); Z68.42 Body mass index [BMI] 45.0-49.9, adult; J44.9 Chronic obstructive pulmonary disease, unspecified; L02.211 Cutaneous abscess of abdominal wall; B95.4 Other streptococcus as the cause of diseases classified elsewhere; E11.9 Type 2 diabetes mellitus without complications; E66.01 Morbid (severe) obesity due to excess calories; M79.3 Panniculitis, unspecified; B96.1 Klebsiella pneumoniae [K. pneumoniae] as the cause of diseases classified elsewhere; B96.89 Other specified bacterial agents as the cause of diseases classified elsewhere; F17.210 Nicotine dependence, cigarettes, uncomplicated; Z79.84 Long term (current) use of oral hypoglycemic drugs; Z88.0 Allergy status to penicillin; Z90.49 Acquired absence of other specified parts of digestive tract; Z79.899 Other long term (current) drug therapy

== ENCOUNTER 2017-05-15 20:05 | Emergency (ER) | payer OTHER | END 2017-05-15 20:41 | disposition left against medical advice (07) | LOC: M ED 20:05 | DX: Z53.29 Procedure and treatment not carried out because of patient's decision for other reasons (principal) ==

== ENCOUNTER 2017-07-08 19:05 | Emergency (ER) | payer OTHER ==
[2017-07-08] MEDS: IPRATROPIUM 0.5MG/ALBUTEROL 2.5MG INH SOL UD 3ML (DUONEB)(J7620) NEB (19:56)
[2017-07-08] MEDS: ALBUTEROL SULFATE 2.5 MG/0.5 ML INH NEB SOLN NEB (19:56)
[2017-07-08] MEDS: AZITHROMYCIN 250 MG TAB PO (20:33)
== END 2017-07-08 20:41 | disposition home or self-care (01) ==
LOC: M ED 19:05
DX: J40 Bronchitis, not specified as acute or chronic (principal); E11.9 Type 2 diabetes mellitus without complications; F17.200 Nicotine dependence, unspecified, uncomplicated; Z79.84 Long term (current) use of oral hypoglycemic drugs; Z79.899 Other long term (current) drug therapy; Z79.51 Long term (current) use of inhaled steroids; Z88.0 Allergy status to penicillin
CPT/HCPCS: 71046

== ENCOUNTER 2017-10-07 20:47 | Emergency (ER) | payer OTHER ==
[2017-10-07] MEDS: NORCO 5/325MG TABLET (BULK FOR ED) PO (22:48)
== END 2017-10-07 22:58 | disposition home or self-care (01) ==
LOC: M ED 20:47
DX: S92.515A Nondisplaced fracture of proximal phalanx of left lesser toe(s), initial encounter for closed fracture (principal); W19.XXXA Unspecified fall, initial encounter; Y92.099 Unspecified place in other non-institutional residence as the place of occurrence of the external cause; Y93.89 Activity, other specified; Y99.9 Unspecified external cause status; E11.9 Type 2 diabetes mellitus without complications; J45.909 Unspecified asthma, uncomplicated; J44.9 Chronic obstructive pulmonary disease, unspecified; G47.33 Obstructive sleep apnea (adult) (pediatric); Z72.0 Tobacco use; Z79.899 Other long term (current) drug therapy; Z88.0 Allergy status to penicillin
CPT/HCPCS: 73630

== ENCOUNTER 2017-12-25 10:55 | Inpatient (IN) | payer OTHER ==
[2017-12-25 11:34] LABS: BASO % 0.2 % (0.0-1.0); EOS % 0.1 % (0.0-3.0); HEMATOCRIT 42.4 % (36.0-47.0); HEMOGLOBIN 13.8 g/dl (12.0-15.5); IMMATURE GRANULOCYTE % 0.7 % (0-3.0); LYMPH # 0.4 10^3/uL (1.5-4.5); MEAN CORPUSCULAR HGB CONC 32.5 g/dl (32.0-36.5); MONO # 0.2 10^3/uL (0.0-0.8); MONO % 1.6 % (0.0-5.0); NEUTROPHILS # 8.5 10^3/uL (1.8-7.7); NEUTROPHILS % 93.4 % (36.0-66.0); PLATELET COUNT, AUTOMATED 124 10^3/uL (150-450); RED BLOOD COUNT 5.51 10^6/uL (4.00-5.40); RED CELL DISTRIBUTION WIDTH 16.8 % (11.5-14.5); WHITE BLOOD COUNT 9.2 10^3/uL (4.0-10.0)
[2017-12-25 12:02] LABS: ALBUMIN 3.3 GM/DL (3.2-5.2); ALKALINE PHOSPHATASE 313 U/L (45-117); ALT/SGPT 84 U/L (12-78); ANION GAP 9 MEQ/L (8-16); AST/SGOT 63 U/L (7-37); BILIRUBIN,DIRECT 7.8 MG/DL (0.0-0.2); BILIRUBIN,TOTAL 10.1 MG/DL (0.2-1.0); BLOOD UREA NITROGEN 11 MG/DL (7-18); CARBON DIOXIDE LEVEL 22 MEQ/L (21-32); CHLORIDE LEVEL 109 MEQ/L (98-107); CREATININE FOR GFR 1.16 MG/DL (0.55-1.30); GLOMERULAR FILTRATION RATE 51.6 (>51); GLUCOSE, FASTING 155 MG/DL (70-100); LIPASE 111 U/L (73-393); POTASSIUM SERUM 3.8 MEQ/L (3.5-5.1); SODIUM LEVEL 140 MEQ/L (136-145)
[2017-12-25] MEDS: ONDANSETRON 4MG/2ML VIAL (J2405) IV ×2 (12:12→15:00)
[2017-12-25] MEDS ORDERED: GASTROGRAFIN SOLUTION 30ML (Q9963) As Ordered (14:34)
[2017-12-25] MEDS: GASTROGRAFIN SOLUTION 30ML (Q9963) PO ×2 (14:39→15:44)
[2017-12-25] MEDS: MEROPENEM INJ 1 GM in APPROPRIATE DILUENT 1 EA IV (15:57)
[2017-12-25] MEDS: NS 1,000 ML IV (15:57)
[2017-12-25] MEDS: MORPHINE 4 MG/ML 1ML VIAL/SYRINGE (J2270) IV (15:57)
[2017-12-25] MEDS ORDERED: ISOVUE-370 76% 100ML VIAL (Q9967) As Ordered (16:29)
[2017-12-25] MEDS ORDERED: ONDANSETRON 4MG/2ML VIAL (J2405) IV (16:30)
[2017-12-25] MEDS ORDERED: FLUTICASONE PROP 0.05% NASAL SPRAY 16 GM (FLONASE) (16:45)
[2017-12-25 17:54] LABS: PROTHROMBIN TIME 15.4 SECONDS (12.1-14.4)
[2017-12-25 17:55] LABS: PARTIAL THROMBOPLASTIN TIME 31.7 SECONDS (25.4-37.6)
[2017-12-25 18:03] LABS: LACTIC ACID SEPSIS PROTOCOL 1.9 MMOL/L (0.4-2.0)
[2017-12-25] MEDS: GABAPENTIN 100 MG CAP PO (21:25)
[2017-12-25] MEDS: IPRATROPIUM 0.5MG/ALBUTEROL 2.5MG INH SOL UD 3ML (DUONEB)(J7620) NEB (21:46)
[2017-12-26] MEDS: MEROPENEM INJ 1 GM in APPROPRIATE DILUENT 1 EA IV ×4 (01:53→23:53)
[2017-12-26] MEDS: NS 1,000 ML IV (04:15)
[2017-12-26] MEDS: IPRATROPIUM 0.5MG/ALBUTEROL 2.5MG INH SOL UD 3ML (DUONEB)(J7620) NEB (07:51)
[2017-12-26 08:12] LABS: BASO % 0.3 % (0.0-1.0); EOS % 0.4 % (0.0-3.0); HEMATOCRIT 35.6 % (36.0-47.0); IMMATURE GRANULOCYTE % 0.5 % (0-3.0); LYMPH # 1.4 10^3/uL (1.5-4.5); LYMPH % 13.7 % (24.0-44.0); MEAN CORPUSCULAR HEMOGLOBIN 24.9 pg (27.0-33.0); MEAN CORPUSCULAR VOLUME 77.7 fl (80.0-96.0); MONO # 0.8 10^3/uL (0.0-0.8); NEUTROPHILS # 7.9 10^3/uL (1.8-7.7); NEUTROPHILS % 77.1 % (36.0-66.0); PLATELET COUNT, AUTOMATED 108 10^3/uL (150-450); RED BLOOD COUNT 4.58 10^6/uL (4.00-5.40); RED CELL DISTRIBUTION WIDTH 17.2 % (11.5-14.5); WHITE BLOOD COUNT 10.2 10^3/uL (4.0-10.0)
[2017-12-26 08:22] LABS: HEMOGLOBIN 11.4 g/dl (12.0-15.5)
[2017-12-26 08:59] LABS: ALBUMIN 2.8 GM/DL (3.2-5.2); ALKALINE PHOSPHATASE 219 U/L (45-117); ALT/SGPT 65 U/L (12-78); ANION GAP 8 MEQ/L (8-16); AST/SGOT 44 U/L (7-37); BILIRUBIN,DIRECT 4.6 MG/DL (0.0-0.2); BILIRUBIN,TOTAL 5.5 MG/DL (0.2-1.0); BLOOD UREA NITROGEN 15 MG/DL (7-18); CALCIUM LEVEL 8.5 MG/DL (8.5-10.1); CARBON DIOXIDE LEVEL 24 MEQ/L (21-32); CHLORIDE LEVEL 109 MEQ/L (98-107); CREATININE FOR GFR 0.85 MG/DL (0.55-1.30); GLOMERULAR FILTRATION RATE > 60.0 (>51); GLUCOSE, FASTING 114 MG/DL (70-100); POTASSIUM SERUM 4.1 MEQ/L (3.5-5.1); SODIUM LEVEL 141 MEQ/L (136-145); TOTAL PROTEIN 6.3 GM/DL (6.4-8.2)
[2017-12-26] MEDS: SERTRALINE HCL 50 MG TAB PO (09:46)
[2017-12-26] MEDS: GABAPENTIN 100 MG CAP PO ×3 (09:46→21:07)
[2017-12-26] MEDS ORDERED: SLF 3 ML SYR IV (10:45)
[2017-12-26] MEDS: SLF 3 ML SYR IV ×2 (12:06→21:08)
[2017-12-26] MEDS: MORPHINE 4 MG/ML 1ML VIAL/SYRINGE (J2270) IV (12:06)
[2017-12-26] MEDS ORDERED: ALBUTEROL SULFATE 2.5 MG/0.5 ML INH NEB SOLN As Ordered (14:49)
[2017-12-26] MEDS: ALBUTEROL SULFATE 2.5 MG/0.5 ML INH NEB SOLN INH (14:52)
[2017-12-26 15:33] LABS: BEDSIDE GLUCOSE 128 MG/DL (70-105)
[2017-12-26] MEDS ORDERED: MIDAZOLAM INJ 2 MG/2 ML VIAL (J2250) As Ordered (15:55)
[2017-12-26] MEDS ORDERED: fentaNYL 100 MCG/2 ML INJECTION (J3010) As Ordered (15:55)
[2017-12-26] MEDS ORDERED: PROPOFOL 200 MG/20 ML VIAL As Ordered (15:55)
[2017-12-26] MEDS ORDERED: LIDOCAINE 2% INJ 100 MG/5 ML SDV (FOR ANES.) As Ordered (15:55)
[2017-12-26] MEDS ORDERED: dexameTHASONE 4 MG/ML 1ML VIAL (J1100) As Ordered (15:55)
[2017-12-26] MEDS ORDERED: ROCURONIUM BROMIDE 50 MG/5 ML VIAL As Ordered (15:55)
[2017-12-26] MEDS: ISOVUE-300 61% 50ML VIAL (Q9967) As Ordered ×2 (16:13→16:32)
[2017-12-26] MEDS ORDERED: KETOROLAC 60 MG/2 ML VIAL (J1885) As Ordered (16:32)
[2017-12-26] MEDS ORDERED: ONDANSETRON 4MG/2ML VIAL (J2405) As Ordered (16:32)
[2017-12-26] MEDS ORDERED: SUGAMMADEX SODIUM 500 MG/5 ML VIAL (BRIDION) As Ordered (16:51)
[2017-12-26] MEDS ORDERED: ALBUTEROL 90 MCG/ACT 8GM HFA INHALER INH (17:00)
[2017-12-26] MEDS ORDERED: fentaNYL 100 MCG/2 ML INJECTION (J3010) IV (17:30)
[2017-12-26] MEDS ORDERED: PERCOCET 5MG/325MG TAB PO (17:30)
[2017-12-26] MEDS ORDERED: METOCLOPRAMIDE INJ 10MG/2ML VIAL (J2765) IV (17:30)
[2017-12-26] MEDS ORDERED: ONDANSETRON 4MG/2ML VIAL (J2405) IV (17:30)
[2017-12-26] MEDS ORDERED: LR 1,000 ML IV (17:30)
[2017-12-26] MEDS ORDERED: MEPERIDINE INJ 25 MG/ML VIAL (J2175) IV (17:30)
[2017-12-26] MEDS: metFORMIN (GLUCOPHAGE) 500 MG TAB PO (18:00)
[2017-12-27] MEDS: SLF 3 ML SYR IV ×3 (05:15→21:06)
[2017-12-27 06:09] LABS: BASO % 0.1 % (0.0-1.0); HEMATOCRIT 35.6 % (36.0-47.0); HEMOGLOBIN 11.5 g/dl (12.0-15.5); IMMATURE GRANULOCYTE % 0.5 % (0-3.0); LYMPH # 1.1 10^3/uL (1.5-4.5); LYMPH % 12.9 % (24.0-44.0); MEAN CORPUSCULAR HEMOGLOBIN 25.1 pg (27.0-33.0); MEAN CORPUSCULAR HGB CONC 32.3 g/dl (32.0-36.5); MEAN CORPUSCULAR VOLUME 77.7 fl (80.0-96.0); MONO # 0.5 10^3/uL (0.0-0.8); MONO % 6.1 % (0.0-5.0); NEUTROPHILS # 6.8 10^3/uL (1.8-7.7); NEUTROPHILS % 80.4 % (36.0-66.0); PLATELET COUNT, AUTOMATED 114 10^3/uL (150-450); RED BLOOD COUNT 4.58 10^6/uL (4.00-5.40); RED CELL DISTRIBUTION WIDTH 17.4 % (11.5-14.5); WHITE BLOOD COUNT 8.4 10^3/uL (4.0-10.0)
[2017-12-27 06:24] LABS: ALBUMIN 2.8 GM/DL (3.2-5.2); ALBUMIN/GLOBULIN RATIO 0.64 (1.00-1.93); ALKALINE PHOSPHATASE 230 U/L (45-117); ALT/SGPT 58 U/L (12-78); ANION GAP 9 MEQ/L (8-16); AST/SGOT 35 U/L (7-37); BLOOD UREA NITROGEN 19 MG/DL (7-18); CALCIUM LEVEL 8.8 MG/DL (8.5-10.1); CARBON DIOXIDE LEVEL 23 MEQ/L (21-32); CHLORIDE LEVEL 109 MEQ/L (98-107); CREATININE FOR GFR 0.83 MG/DL (0.55-1.30); GLOMERULAR FILTRATION RATE > 60.0 (>51); GLUCOSE, FASTING 193 MG/DL (70-100); POTASSIUM SERUM 4.6 MEQ/L (3.5-5.1); SODIUM LEVEL 141 MEQ/L (136-145); TOTAL PROTEIN 7.2 GM/DL (6.4-8.2)
[2017-12-27 07:29] LABS: LIPASE 124 U/L (73-393)
[2017-12-27] MEDS: metFORMIN (GLUCOPHAGE) 500 MG TAB PO ×2 (08:00→17:38)
[2017-12-27] MEDS: GABAPENTIN 100 MG CAP PO ×3 (08:08→21:05)
[2017-12-27] MEDS: POTASSIUM CHLORIDE 10 MEQ SR TABLET PO (08:08)
[2017-12-27] MEDS: MEROPENEM INJ 1 GM in APPROPRIATE DILUENT 1 EA IV (08:08)
[2017-12-27] MEDS: FUROSEMIDE 80 MG TAB PO (08:09)
[2017-12-27] MEDS: SERTRALINE HCL 50 MG TAB PO (08:09)
[2017-12-27] MEDS: ACETAMINOPHEN 325 MG TAB PO ×2 (08:10→15:16)
[2017-12-27] MEDS: CIPROFLOXACIN 500 MG TAB PO ×2 (09:54→17:38)
[2017-12-27] MEDS: metroNIDAZOLE (FLAGYL) 500 MG TAB PO ×3 (09:54→21:05)
[2017-12-27] MEDS: MORPHINE 4 MG/ML 1ML VIAL/SYRINGE (J2270) IV (12:20)
[2017-12-28] MEDS: SLF 3 ML SYR IV (05:30)
[2017-12-28] MEDS: CIPROFLOXACIN 500 MG TAB PO (05:30)
[2017-12-28] MEDS: metroNIDAZOLE (FLAGYL) 500 MG TAB PO (05:30)
[2017-12-28 05:58] LABS: BASO % 0.3 % (0.0-1.0); EOS % 0.5 % (0.0-3.0); HEMATOCRIT 34.7 % (36.0-47.0); HEMOGLOBIN 11.2 g/dl (12.0-15.5); IMMATURE GRANULOCYTE % 0.5 % (0-3.0); LYMPH # 1.6 10^3/uL (1.5-4.5); LYMPH % 27.1 % (24.0-44.0); MEAN CORPUSCULAR HEMOGLOBIN 25.2 pg (27.0-33.0); MEAN CORPUSCULAR HGB CONC 32.3 g/dl (32.0-36.5); MONO # 0.3 10^3/uL (0.0-0.8); MONO % 5.8 % (0.0-5.0); NEUTROPHILS # 3.8 10^3/uL (1.8-7.7); NEUTROPHILS % 65.8 % (36.0-66.0); PLATELET COUNT, AUTOMATED 112 10^3/uL (150-450); RED BLOOD COUNT 4.45 10^6/uL (4.00-5.40); RED CELL DISTRIBUTION WIDTH 17.5 % (11.5-14.5); WHITE BLOOD COUNT 5.7 10^3/uL (4.0-10.0)
[2017-12-28 06:11] LABS: ALBUMIN 2.9 GM/DL (3.2-5.2); ALBUMIN/GLOBULIN RATIO 0.71 (1.00-1.93); ALKALINE PHOSPHATASE 239 U/L (45-117); ALT/SGPT 49 U/L (12-78); ANION GAP 9 MEQ/L (8-16); AST/SGOT 27 U/L (7-37); BILIRUBIN,TOTAL 1.7 MG/DL (0.2-1.0); BLOOD UREA NITROGEN 14 MG/DL (7-18); CALCIUM LEVEL 8.3 MG/DL (8.5-10.1); CARBON DIOXIDE LEVEL 26 MEQ/L (21-32); CHLORIDE LEVEL 108 MEQ/L (98-107); CREATININE FOR GFR 0.78 MG/DL (0.55-1.30); GLOMERULAR FILTRATION RATE > 60.0 (>51); GLUCOSE, FASTING 128 MG/DL (70-100); LIPASE 84 U/L (73-393); POTASSIUM SERUM 3.8 MEQ/L (3.5-5.1); SODIUM LEVEL 143 MEQ/L (136-145)
[2017-12-28] MEDS: FUROSEMIDE 80 MG TAB PO (07:49)
[2017-12-28] MEDS: GABAPENTIN 100 MG CAP PO (07:49)
[2017-12-28] MEDS: POTASSIUM CHLORIDE 10 MEQ SR TABLET PO (07:50)
[2017-12-28] MEDS: SERTRALINE HCL 50 MG TAB PO (07:50)
[2017-12-28] MEDS: metFORMIN (GLUCOPHAGE) 500 MG TAB PO (07:50)
== END 2017-12-28 11:12 | disposition home or self-care (01) | DRG 813 ==
LOC: M ED 10:55 → M ED INP 16:21 → M PCU 17:52
PROC: 0F798DZ Dilation of Common Bile Duct with Intraluminal Device, Via Natural or Artificial Opening Endoscopic (ICD-10-PCS; principal; 2017-12-26 15:30)
DX: T85.590A Other mechanical complication of bile duct prosthesis, initial encounter (principal); E11.621 Type 2 diabetes mellitus with foot ulcer; K83.1 Obstruction of bile duct; C78.7 Secondary malignant neoplasm of liver and intrahepatic bile duct; C78.89 Secondary malignant neoplasm of other digestive organs; J44.9 Chronic obstructive pulmonary disease, unspecified; F17.200 Nicotine dependence, unspecified, uncomplicated; Z79.899 Other long term (current) drug therapy; Z88.0 Allergy status to penicillin; Y82.8 Other medical devices associated with adverse incidents

== ENCOUNTER 2017-12-30 19:13 | Emergency (ER) | payer OTHER ==
[2017-12-30 20:03] LABS: APPEARANCE, URINE HAZY (CLEAR); BACTERIA, URINE AUTO NEGATIVE (NEGATIVE); BILIRUBIN, URINE AUTO NEGATIVE (NEGATIVE); BLOOD, URINE BLOOD NEGATIVE (NEGATIVE); COLOR, URINE AMBER (YELLOW); GLUCOSE, URINE (UA) AUTO NEGATIVE (NEGATIVE); KETONE, URINE AUTO NEGATIVE (NEGATIVE); LEUKOCYTE ESTERASE, URINE AUTO TRACE (NEGATIVE); MUCUS, URINE SMALL (NEGATIVE); NITRITE, URINE AUTO NEGATIVE (NEGATIVE); PROTEIN, URINE AUTO NEGATIVE (NEGATIVE); RBC, URINE AUTO 4 /HPF (0-3); SPECIFIC GRAVITY URINE AUTO 1.026 (1.002-1.035); SQUAMOUS EPITHELIAL CELL UR AU 6 /HPF (0-6); WBC, URINE AUTO 2 /HPF (0-3)
[2017-12-30 20:08] LABS: INR 0.99; PARTIAL THROMBOPLASTIN TIME 26.4 SECONDS (25.4-37.6); PROTHROMBIN TIME 13.2 SECONDS (12.1-14.4)
[2017-12-30 20:16] LABS: BASO # 0.1 10^3/uL (0.0-0.2); BASO % 0.9 % (0.0-1.0); EOS # 0.1 10^3/uL (0.0-0.50); HEMATOCRIT 36.9 % (36.0-47.0); HEMOGLOBIN 12.3 g/dl (12.0-15.5); LYMPH # 2.2 10^3/uL (1.5-4.5); MEAN CORPUSCULAR HEMOGLOBIN 25.4 pg (27.0-33.0); MEAN CORPUSCULAR HGB CONC 33.3 g/dl (32.0-36.5); MEAN CORPUSCULAR VOLUME 76.1 fl (80.0-96.0); MONO # 0.5 10^3/uL (0.0-0.8); MONO % 7.7 % (0.0-5.0); NEUTROPHILS % 56.4 % (36.0-66.0); RED BLOOD COUNT 4.85 10^6/uL (4.00-5.40); RED CELL DISTRIBUTION WIDTH 17.2 % (11.5-14.5)
[2017-12-30 20:20] LABS: PLATELET COUNT, AUTOMATED 128 10^3/uL (150-450); POS COUNT POS FLAG
[2017-12-30 20:25] LABS: ALBUMIN 3.2 GM/DL (3.2-5.2); ALBUMIN/GLOBULIN RATIO 0.74 (1.00-1.93); ALKALINE PHOSPHATASE 273 U/L (45-117); ALT/SGPT 44 U/L (12-78); ANION GAP 9 MEQ/L (8-16); AST/SGOT 30 U/L (7-37); BILIRUBIN,DIRECT 0.9 MG/DL (0.0-0.2); BILIRUBIN,TOTAL 1.1 MG/DL (0.2-1.0); BLOOD UREA NITROGEN 13 MG/DL (7-18); CALCIUM LEVEL 8.6 MG/DL (8.5-10.1); CARBON DIOXIDE LEVEL 26 MEQ/L (21-32); CHLORIDE LEVEL 105 MEQ/L (98-107); CREATININE FOR GFR 0.88 MG/DL (0.55-1.30); GLOMERULAR FILTRATION RATE > 60.0 (>51); GLUCOSE, FASTING 179 MG/DL (70-100); SODIUM LEVEL 140 MEQ/L (136-145); TOTAL PROTEIN 7.5 GM/DL (6.4-8.2)
== END 2017-12-30 21:11 | disposition home or self-care (01) ==
LOC: M ED 19:13
DX: H11.33 Conjunctival hemorrhage, bilateral (principal); R17 Unspecified jaundice; R05 Cough; F17.200 Nicotine dependence, unspecified, uncomplicated; Z79.899 Other long term (current) drug therapy; Z79.2 Long term (current) use of antibiotics; Z79.84 Long term (current) use of oral hypoglycemic drugs; Z79.51 Long term (current) use of inhaled steroids; Z88.0 Allergy status to penicillin
CPT/HCPCS: 80076

== ENCOUNTER 2018-02-13 13:30 | Emergency (ER) | payer OTHER | END 2018-02-13 16:10 | disposition home or self-care (01) | LOC: M ED 13:30 | DX: L03.113 Cellulitis of right upper limb (principal); E11.9 Type 2 diabetes mellitus without complications; J45.909 Unspecified asthma, uncomplicated; J44.9 Chronic obstructive pulmonary disease, unspecified; G47.30 Sleep apnea, unspecified; F41.9 Anxiety disorder, unspecified; Z72.0 Tobacco use; Z79.84 Long term (current) use of oral hypoglycemic drugs; Z79.899 Other long term (current) drug therapy; Z88.0 Allergy status to penicillin | CPT/HCPCS: 73120 ==

== ENCOUNTER → 2018-07-29 | Outpatient (CLI) | payer OTHER ==
[~2018-07-29] MED LIST changes: -/ALBU4TAB INH; -/CELE20CA; +ALBU1TAB2 INH; +BACT800T5 PO; +CELE1CAP4; +CIPR-249 PO; +FLAG500T PO; +GABA-1171 PO; -GABA-279 PO; +HYDR-3715 PO; +IBUP80TA PO; +IBUPOTC PO; +IPRA0.00; +IPRA0.00 INH; -IPRASOL4; -IPRASOL4 INH; +ONDA8TAB7 PO; +PATIENT COMMENT; +POTA20PW PO; +PRED-351 PO; -PRED10TA PO; +PROAAER10 INH; +SENN1TAB40 PO; +SERT25TA88 PO; +SULF1TAB93 PO; +TYLE325T5 PO; -VITA1CAP40 PO; +VITA50005 PO; +ZITHTAB PO; +ZOFR4TAB14 PO
[2018-07-29 16:18] LABS: BASO % 0.6 % (0.0-1.0); EOS # 0.1 10^3/uL (0.0-0.50); EOS % 1.6 % (0.0-3.0); HEMOGLOBIN 12.3 g/dl (12.0-15.5); LYMPH # 1.3 10^3/uL (1.5-4.5); LYMPH % 26.5 % (24.0-44.0); MEAN CORPUSCULAR HEMOGLOBIN 25.3 pg (27.0-33.0); MEAN CORPUSCULAR HGB CONC 31.5 g/dl (32.0-36.5); MEAN CORPUSCULAR VOLUME 80.1 fl (80.0-96.0); MONO # 0.4 10^3/uL (0.0-0.8); MONO % 7.5 % (0.0-5.0); NEUTROPHILS # 3.1 10^3/uL (1.8-7.7); NEUTROPHILS % 63.2 % (36.0-66.0); PLATELET COUNT, AUTOMATED 123 10^3/uL (150-450); RED BLOOD COUNT 4.87 10^6/uL (4.00-5.40); WHITE BLOOD COUNT 4.9 10^3/uL (4.0-10.0)
[2018-07-29 16:36] LABS: ALBUMIN 3.4 GM/DL (3.2-5.2); ALT/SGPT 24 U/L (12-78); BILIRUBIN,TOTAL 0.5 MG/DL (0.2-1.0); BLOOD UREA NITROGEN 10 MG/DL (7-18); CALCIUM LEVEL 8.3 MG/DL (8.5-10.1); CARBON DIOXIDE LEVEL 26 MEQ/L (21-32); CHLORIDE LEVEL 108 MEQ/L (98-107); GLOMERULAR FILTRATION RATE > 60.0 (>51); GLUCOSE, FASTING 114 MG/DL (70-100); POTASSIUM SERUM 4.7 MEQ/L (3.5-5.1); SODIUM LEVEL 140 MEQ/L (136-145); TOTAL PROTEIN 7.2 GM/DL (6.4-8.2)
== END ==
LOC: M LAB 15:25
PROVIDERS: ATTEND Internal Medicine Gastroenterology
DX: R17 Unspecified jaundice (principal); R94.5 Abnormal results of liver function studies

== ENCOUNTER → 2019-02-05 | Outpatient (REF) | payer OTHER ==
[~2019-02-05] MED LIST changes: +SENN-53 PO; -SENN1TAB40 PO; -SERT-155 PO; +SERT25TA21; +SERT25TA21 PO; -SERT25TA88; -SERT25TA88 PO; +SERT50TA29 PO
[2019-02-05 19:18] LABS: ALBUMIN 3.7 GM/DL (3.2-5.2); BILIRUBIN,TOTAL 0.4 MG/DL (0.2-1.0); CALCIUM LEVEL 9.1 MG/DL (8.5-10.1); CREATININE FOR GFR 1.06 MG/DL (0.55-1.30); FREE T4 1.08 NG/DL (0.76-1.46); GLOMERULAR FILTRATION RATE 57.1 (>51); POTASSIUM SERUM 4.2 MEQ/L (3.5-5.1); THYROID STIMULATING HORMONE 2.76 uIU/ML (0.358-3.740); TOTAL PROTEIN 7.2 GM/DL (6.4-8.2)
[2019-02-05 20:04] LABS: HEMOGLOBIN A1c 9.7 %
== END ==
LOC: M LAB REF 16:50
PROVIDERS: ATTEND Nurse Practitioner Family
DX: Z00.01 Encounter for general adult medical examination with abnormal findings (principal)

== ENCOUNTER → 2019-02-25 | Outpatient (REF) | payer OTHER ==
[2019-02-25 14:12] LABS: FREE T4 1.06 NG/DL (0.76-1.46); THYROID STIMULATING HORMONE 4.88 uIU/ML (0.358-3.740)
== END ==
LOC: M LAB REF 12:47
PROVIDERS: ATTEND Internal Medicine Nephrology
DX: R60.0 Localized edema (principal)

== ENCOUNTER 2019-03-21 03:24 | Emergency (ER) | payer OTHER ==
[~2019-03-21] VITALS: Ht 162.6 cm; Wt 109.1 kg
[2019-03-21] MEDS ORDERED: ZOLO25TA PO (04:05)
[2019-03-21] MEDS ORDERED: ZOLO50TA PO (04:05)
[2019-03-21 04:31] LABS: BASO % 0.6 % (0.0-1.0); EOS % 0.6 % (0.0-3.0); HEMATOCRIT 42.8 % (36.0-47.0); HEMOGLOBIN 14.4 g/dl (12.0-15.5); LYMPH # 1.1 10^3/uL (1.5-5.0); LYMPH % 15.5 % (24.0-44.0); MEAN CORPUSCULAR HEMOGLOBIN 26.9 pg (27.0-33.0); MEAN CORPUSCULAR HGB CONC 33.6 g/dl (32.0-36.5); MEAN CORPUSCULAR VOLUME 79.9 fl (80.0-96.0); MONO # 0.6 10^3/uL (0.0-0.8); MONO % 8.2 % (0.0-5.0); NEUTROPHILS # 5.3 10^3/uL (1.5-8.5); NEUTROPHILS % 74.1 % (36.0-66.0); PLATELET COUNT, AUTOMATED 151 10^3/uL (150-450); RED BLOOD COUNT 5.36 10^6/uL (4.00-5.40); WHITE BLOOD COUNT 7.2 10^3/uL (4.0-10.0)
[2019-03-21 05:03] LABS: BILIRUBIN,DIRECT 0.2 MG/DL (0.0-0.2); BILIRUBIN,TOTAL 0.8 MG/DL (0.2-1.0)
--- NOTE | 2019-03-21 06:37 | REPVR ---
PROCEDURE INFORMATION: Exam: US Abdomen Limited, Right Upper Quadrant Exam date and time: 03/21/2019 5:46 AM Age: 58 years old Clinical history: Abdominal pain; Epigastric; Prior surgery; Surgery date: 6+ months; Surgery type: S/P cholecystectomy; Additional info: Elevated ast/alt. Eval for cbd stone TECHNIQUE: Imaging protocol: Real-time ultrasound of the abdomen with image documentation. Examination was focused on the right upper quadrant. COMPARISON: LIVER US 12/25/2017 12:53 PM FINDINGS: Liver: The liver is echogenic and attenuating. Gallbladder: Status post cholecystectomy. Common bile duct: The CBD measures 10 mm. Pancreas: The pancreas is obscured by gas shadowing. Right kidney: The right kidney appears normal with no hydronephrosis and measures 11.8 cm. IMPRESSION: 1. Status post cholecystectomy. 2. Mild CBD dilation measuring 10 mm which is attributed to prior cholecystectomy and is likely physiologic. No definite intraluminal stone is identified although visualization is limited. 3. Fatty infiltration of the liver. Electronically signed by: Delgado Castro On 03/21/2019 06:37:08 AM
[2019-03-21 06:45] VITALS: BP 167/104
--- NOTE | 2019-03-21 20:12 | ECGEPIP ---
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
== END 2019-03-21 07:27 | disposition home or self-care (01) ==
LOC: M ED 03:24
DX: R10.9 Unspecified abdominal pain (principal); E11.9 Type 2 diabetes mellitus without complications; J44.9 Chronic obstructive pulmonary disease, unspecified; Z79.899 Other long term (current) drug therapy; Z79.84 Long term (current) use of oral hypoglycemic drugs; Z88.0 Allergy status to penicillin; F17.210 Nicotine dependence, cigarettes, uncomplicated

== ENCOUNTER → 2019-05-08 | Outpatient (REF) | payer OTHER ==
[~2019-05-08] MED LIST changes: +ONDA8TAB10 PO; -ONDA8TAB7 PO; +ZOLO25TA PO; +ZOLO50TA PO
[2019-05-08 17:25] LABS: ALBUMIN 3.9 GM/DL (3.2-5.2); ALT/SGPT 76 U/L (12-78); BILIRUBIN,TOTAL 0.6 MG/DL (0.2-1.0); BLOOD UREA NITROGEN 11 MG/DL (7-18); CALCIUM LEVEL 8.8 MG/DL (8.5-10.1); CARBON DIOXIDE LEVEL 25 MEQ/L (21-32); CHLORIDE LEVEL 106 MEQ/L (98-107); CHOLESTEROL LEVEL 197 MG/DL (<200); CHOLESTEROL RISK RATIO 5.324 (<5); CREATININE FOR GFR 0.81 MG/DL (0.55-1.30); FREE T4 1.25 NG/DL (0.76-1.46); GLOMERULAR FILTRATION RATE > 60.0 (>51); GLUCOSE, FASTING 191 MG/DL (70-100); HDL CHOLESTEROL 37 MG/DL (>40); LDL CHOLESTEROL 133 MG/DL (<100); NON-HDL-C 160 MG/DL; POTASSIUM SERUM 4.3 MEQ/L (3.5-5.1); SODIUM LEVEL 138 MEQ/L (136-145); TOTAL PROTEIN 7.3 GM/DL (6.4-8.2); TRIGLYCERIDES LEVEL 135 MG/DL (<150)
[2019-05-08 17:26] LABS: BASO % 0.6 % (0.0-1.0); EOS # 0.1 10^3/uL (0.0-0.5); EOS % 1.4 % (0.0-3.0); HEMATOCRIT 43.6 % (36.0-47.0); HEMOGLOBIN 14.4 g/dl (12.0-15.5); LYMPH # 1.4 10^3/uL (1.5-5.0); LYMPH % 27.2 % (24.0-44.0); MEAN CORPUSCULAR VOLUME 81.6 fl (80.0-96.0); MONO # 0.3 10^3/uL (0.0-0.8); MONO % 6.5 % (0.0-5.0); NEUTROPHILS # 3.2 10^3/uL (1.5-8.5); NEUTROPHILS % 63.9 % (36.0-66.0); PLATELET COUNT, AUTOMATED 156 10^3/uL (150-450); RED BLOOD COUNT 5.34 10^6/uL (4.00-5.40)
[2019-05-08 17:27] LABS: TOTAL 25(OH) VITAMIN D 21.9 NG/ML (30.0-100.0)
[2019-05-08 17:45] LABS: HEMOGLOBIN A1c 8.7 %
== END ==
LOC: M LAB REF 16:36
PROVIDERS: ATTEND Physician Assistant
DX: J44.9 Chronic obstructive pulmonary disease, unspecified (principal); F41.8 Other specified anxiety disorders; F17.200 Nicotine dependence, unspecified, uncomplicated; E11.9 Type 2 diabetes mellitus without complications; Z68.42 Body mass index [BMI] 45.0-49.9, adult; E66.01 Morbid (severe) obesity due to excess calories; R60.0 Localized edema; E55.9 Vitamin D deficiency, unspecified; E78.5 Hyperlipidemia, unspecified

== ENCOUNTER → 2019-09-09 | Outpatient (REF) | payer OTHER ==
[2019-09-09 13:20] LABS: BASO % 0.4 % (0.0-1.0); EOS # 0.1 10^3/uL (0.0-0.5); EOS % 1.6 % (0.0-3.0); HEMATOCRIT 42.3 % (36.0-47.0); LYMPH # 1.3 10^3/uL (1.5-5.0); MEAN CORPUSCULAR HEMOGLOBIN 26.9 pg (27.0-33.0); MEAN CORPUSCULAR HGB CONC 33.1 g/dl (32.0-36.5); MEAN CORPUSCULAR VOLUME 81.3 fl (80.0-96.0); MONO # 0.3 10^3/uL (0.0-0.8); MONO % 6.2 % (0.0-5.0); NEUTROPHILS # 3.4 10^3/uL (1.5-8.5); NEUTROPHILS % 65.6 % (36.0-66.0); PLATELET COUNT, AUTOMATED 157 10^3/uL (150-450); WHITE BLOOD COUNT 5.2 10^3/uL (4.0-10.0)
[2019-09-09 13:33] LABS: ALBUMIN 3.7 GM/DL (3.2-5.2); ALT/SGPT 29 U/L (12-78); BILIRUBIN,TOTAL 0.3 MG/DL (0.2-1.0); BLOOD UREA NITROGEN 9 MG/DL (7-18); CALCIUM LEVEL 8.9 MG/DL (8.5-10.1); CARBON DIOXIDE LEVEL 27 MEQ/L (21-32); CHLORIDE LEVEL 107 MEQ/L (98-107); CHOLESTEROL LEVEL 177 MG/DL (<200); CHOLESTEROL RISK RATIO 4.425 (<5); CREATININE FOR GFR 0.88 MG/DL (0.55-1.30); FREE T4 1.14 NG/DL (0.76-1.46); GLOMERULAR FILTRATION RATE > 60.0 (>51); GLUCOSE, FASTING 264 MG/DL (70-100); HDL CHOLESTEROL 40 MG/DL (>40); LDL CHOLESTEROL 107 MG/DL (<100); NON-HDL-C 137 MG/DL; POTASSIUM SERUM 4.3 MEQ/L (3.5-5.1); SODIUM LEVEL 140 MEQ/L (136-145); TOTAL PROTEIN 7.1 GM/DL (6.4-8.2); TRIGLYCERIDES LEVEL 152 MG/DL (<150)
[2019-09-09 14:52] LABS: MALB URINE SIEMENS 10.6 MG/L; MAU/CREAT RATIO 7.6 MCG/MG (0.0-30.0)
== END ==
LOC: M LAB REF 12:22
PROVIDERS: ATTEND Physician Assistant
DX: F17.200 Nicotine dependence, unspecified, uncomplicated (principal); E11.9 Type 2 diabetes mellitus without complications; E78.5 Hyperlipidemia, unspecified; E55.9 Vitamin D deficiency, unspecified

== ENCOUNTER → 2019-11-28 | Outpatient (REF) | payer OTHER ==
[2019-11-28 13:32] LABS: ALBUMIN 3.8 GM/DL (3.2-5.2); ALT/SGPT 104 U/L (12-78); BILIRUBIN,TOTAL 0.8 MG/DL (0.2-1.0); BLOOD UREA NITROGEN 10 MG/DL (7-18); CARBON DIOXIDE LEVEL 28 MEQ/L (21-32); CHLORIDE LEVEL 108 MEQ/L (98-107); CHOLESTEROL LEVEL 197 MG/DL (<200); CHOLESTEROL RISK RATIO 6.156 (<5); CREATININE FOR GFR 0.87 MG/DL (0.55-1.30); FREE T4 1.21 NG/DL (0.76-1.46); GLOMERULAR FILTRATION RATE > 60.0 (>51); GLUCOSE, FASTING 158 MG/DL (70-100); HDL CHOLESTEROL 32 MG/DL (>40); LDL CHOLESTEROL 134 MG/DL (<100); NON-HDL-C 165 MG/DL; POTASSIUM SERUM 4.5 MEQ/L (3.5-5.1); SODIUM LEVEL 139 MEQ/L (136-145); TOTAL PROTEIN 7.3 GM/DL (6.4-8.2); TRIGLYCERIDES LEVEL 153 MG/DL (<150)
[2019-11-28 13:47] LABS: TOTAL 25(OH) VITAMIN D 17.1 NG/ML (30.0-100.0)
[2019-11-28 13:48] LABS: HEMOGLOBIN A1c 7.9 %
== END ==
LOC: M LAB REF 12:15
PROVIDERS: ATTEND Physician Assistant
DX: R60.0 Localized edema (principal); E11.65 Type 2 diabetes mellitus with hyperglycemia; E78.5 Hyperlipidemia, unspecified; E55.9 Vitamin D deficiency, unspecified

== ENCOUNTER → 2019-12-29 | Outpatient (CLI) | payer OTHER ==
--- NOTE | 2020-01-06 17:05 | REP ---
LOW-DOSE LUNG SCREENING CLINICAL: Nicotine dependence. FINDINGS: A 6-mm noncalcified nodule is identified within the right lower lobe (Image 39). The lung godinez are otherwise relatively well-aerated. No further consolidation, obvious significant nodule, or mass lesion. No effusion or pneumothorax. Tracheobronchial tree is patent. IMPRESSION: Lung-RADS Category 3. A 6-mm solid nodule in the right lower lobe. Management and recommendations include six month low-dose CT follow-up evaluation. [facility]
== END ==
LOC: M RAD 07:32
PROVIDERS: ATTEND Physician Assistant
DX: R91.1 Solitary pulmonary nodule (principal); F17.218 Nicotine dependence, cigarettes, with other nicotine-induced disorders

== ENCOUNTER → 2020-05-20 | Outpatient (REF) | payer OTHER ==
[2020-05-20 16:07] LABS: BASO % 0.5 % (0.0-1.0); EOS # 0.1 10^3/uL (0.0-0.5); EOS % 1.5 % (0.0-3.0); HEMATOCRIT 42.9 % (36.0-47.0); HEMOGLOBIN 14.1 g/dl (12.0-15.5); LYMPH # 1.6 10^3/uL (1.5-5.0); LYMPH % 27.4 % (24.0-44.0); MEAN CORPUSCULAR HEMOGLOBIN 27.3 pg (27.0-33.0); MEAN CORPUSCULAR HGB CONC 32.9 g/dl (32.0-36.5); MEAN CORPUSCULAR VOLUME 83.1 fl (80.0-96.0); MONO # 0.4 10^3/uL (0.0-0.8); NEUTROPHILS # 3.7 10^3/uL (1.5-8.5); NEUTROPHILS % 64.4 % (36.0-66.0); PLATELET COUNT, AUTOMATED 169 10^3/uL (150-450); RED BLOOD COUNT 5.16 10^6/uL (4.00-5.40); WHITE BLOOD COUNT 5.8 10^3/uL (4.0-10.0)
[2020-05-20 16:27] LABS: ALBUMIN 3.8 GM/DL (3.2-5.2); ALT/SGPT 26 U/L (12-78); BILIRUBIN,TOTAL 0.3 MG/DL (0.2-1.0); BLOOD UREA NITROGEN 10 MG/DL (7-18); CALCIUM LEVEL 9.1 MG/DL (8.5-10.1); CARBON DIOXIDE LEVEL 29 MEQ/L (21-32); CHLORIDE LEVEL 106 MEQ/L (98-107); CHOLESTEROL LEVEL 188 MG/DL (<200); CREATININE FOR GFR 0.89 MG/DL (0.55-1.30); GLOMERULAR FILTRATION RATE > 60.0 (>51); GLUCOSE, FASTING 163 MG/DL (70-100); HDL CHOLESTEROL 47 MG/DL (>40); LDL CHOLESTEROL 118 MG/DL (<100); NON-HDL-C 141 MG/DL; POTASSIUM SERUM 5.3 MEQ/L (3.5-5.1); SODIUM LEVEL 139 MEQ/L (136-145); TOTAL PROTEIN 7.1 GM/DL (6.4-8.2); TRIGLYCERIDES LEVEL 114 MG/DL (<150)
[2020-05-20 16:45] LABS: TOTAL 25(OH) VITAMIN D 31.2 NG/ML (30.0-100.0)
[2020-05-20 19:52] LABS: HEMOGLOBIN A1c 7.5 %
[2020-05-22 08:09] LABS: LDL DIRECT 114 mg/dL (0-99)
== END ==
LOC: M LAB REF 15:40
PROVIDERS: ATTEND Physician Assistant
DX: E11.69 Type 2 diabetes mellitus with other specified complication (principal); E55.9 Vitamin D deficiency, unspecified

== ENCOUNTER → 2020-08-17 | Outpatient (REF) | payer OTHER ==
[~2020-08-17] MED LIST changes: +BACTDSTA PO; -SULF1TAB93 PO
[2020-08-17 17:27] LABS: ALBUMIN 3.9 GM/DL (3.2-5.2); ALT/SGPT 48 U/L (12-78); BILIRUBIN,TOTAL 0.5 MG/DL (0.2-1.0); BLOOD UREA NITROGEN 9 MG/DL (7-18); CALCIUM LEVEL 9.2 MG/DL (8.5-10.1); CARBON DIOXIDE LEVEL 26 MEQ/L (21-32); CHLORIDE LEVEL 106 MEQ/L (98-107); CREATININE FOR GFR 0.76 MG/DL (0.55-1.30); GLOMERULAR FILTRATION RATE > 60.0 (>51); GLUCOSE, FASTING 203 MG/DL (70-100); POTASSIUM SERUM 4.6 MEQ/L (3.5-5.1); SODIUM LEVEL 137 MEQ/L (136-145); TOTAL PROTEIN 7.2 GM/DL (6.4-8.2)
[2020-08-17 17:31] LABS: MALB URINE SIEMENS 13.2 MG/L; MAU/CREAT RATIO 5.7 MCG/MG (0.0-30.0)
== END ==
LOC: M LAB REF 15:42
PROVIDERS: ATTEND Physician Assistant
DX: E87.5 Hyperkalemia (principal); E11.65 Type 2 diabetes mellitus with hyperglycemia

== ENCOUNTER → 2020-10-26 | Outpatient (CLI) | payer OTHER ==
--- NOTE | 2020-10-26 14:08 | REP ---
INDICATION: SOLITARY PULMONARY NODULE. COMPARISON: Low-dose lung CT screening 12/29/2019 TECHNIQUE: Noncontrast scan through the chest with coronal and sagittal reconstructions. FINDINGS: 6 mm nodule in the right lower lobe on the low-dose screening CT last year is no longer visible, likely an inflammatory nodule. Some fibrotic scarring in the inferior lingular segment left upper lobe at the anterior left lung base unchanged. Right middle was unremarkable. The right upper lobe showed a 3.4 mm subpleural nodule about the anterior axillary line on image 45 as a new finding. Couple of other scattered 2 mm subpleural nodules in the right upper lung zone. Right lower lobe is now clear of any acute finding. Left lung shows a stable 3 mm nodule on image 20 posteriorly and near the apex there are few scattered 2 mm nodules in subpleural left lung. Heart is not enlarged. There are a few coronary calcifications evident. The aorta is without aneurysm. No pathologic sized mediastinal, hilar, axillary or supraclavicular adenopathy. Bony thorax shows age related thoracic spondylosis without compression deformity or destructive lesion. Sternum, manubrium, clavicles, visualized portions of shoulders and ribs are all unremarkable. The upper abdomen shows the liver with intrahepatic biliary dilatation and then indwelling biliary stent/drain. Spleen is seen only in part but it appears enlarged the right hepatic lobe is normal size the left hepatic lobe is enlarged. No hiatal hernia. Visualized pancreas unremarkable adrenal glands and upper poles kidneys intact. IMPRESSION: 1. Clearing of the 6 mm noncalcified nodule in the right lower lobe since the previous study, likely an inflammatory nodule. There are a few scattered bilateral subpleural 2-3 mm nodules on both sides, grossly intact. No new suspicious finding. 2. Some underlying COPD, coronary artery calcifications, atherosclerotic calcifications of the aorta without cardiomegaly, aortic aneurysm, mediastinal adenopathy or other acute chest finding. 3. Intrahepatic biliary dilatation with indwelling stent of different type than on the previous KUB of 12/25/2017. This appears to have a coil element to it. No other significant finding. <Electronically signed by Demetri Rodriguez > 10/26/20 [id number]
== END ==
LOC: M PLAIMG 12:22
PROVIDERS: ATTEND Physician Assistant
DX: R91.1 Solitary pulmonary nodule (principal)

== ENCOUNTER 2020-12-24 10:44 | Outpatient (CLI) | payer OTHER ==
[~2020-12-24 10:44] MED LIST changes: +ALBUTEROL 90 MCG/ACT 8GM HFA INHALER INH PRN; +ALBUTEROL SULFATE 2.5 MG/0.5 ML INH NEB SOLN INH PRN; +EPINEPHrine INJ 1 MG/ML 1ML AMP IM PRN; +NS 1,000 ML IV SCH; +ONDA-84 PO; -ONDA8TAB10 PO; +POTA-151 PO; -POTA20TA6 PO; +diphenhydrAMINE 50MG/ML VIAL (J1200) IV PRN; +methylPREDNISolone 125MG 2ML VIAL IV PRN
[2020-12-24 10:53] VITALS: BP 169/89
[2020-12-24] MEDS ORDERED: CASIRIVIMAB/IMDEVIMAB 1,200 MG in NS 250 ML IV ONE (11:05)
[2020-12-24 11:16] VITALS: BP 128/60
[2020-12-24 11:48] VITALS: BP 121/75
[2020-12-24 12:17] VITALS: BP 126/73
[2020-12-24 12:47] VITALS: BP 120/68
[2020-12-24 13:58] VITALS: BP 144/76
== END 2020-12-24 14:03 | disposition home or self-care (01) ==
LOC: M OPCLI4PR 10:44 → M 4MAIN 10:52 → M OPCLI4PR 14:03
PROVIDERS: ATTEND Physician Assistant
DX: U07.1 COVID-19 (principal); Z88.0 Allergy status to penicillin

== ENCOUNTER → 2021-05-11 | Outpatient (CLI) | payer OTHER ==
[~2021-05-11] MED LIST changes: -ALBUTEROL 90 MCG/ACT 8GM HFA INHALER INH PRN; -ALBUTEROL SULFATE 2.5 MG/0.5 ML INH NEB SOLN INH PRN; -EPINEPHrine INJ 1 MG/ML 1ML AMP IM PRN; +ISOVUE-370 76% 100ML VIAL As Ordered ONE; -NS 1,000 ML IV SCH; -diphenhydrAMINE 50MG/ML VIAL (J1200) IV PRN; -methylPREDNISolone 125MG 2ML VIAL IV PRN
== END ==
LOC: M RAD 12:08
PROVIDERS: ATTEND Physician Assistant
DX: K43.9 Ventral hernia without obstruction or gangrene (principal); E11.9 Type 2 diabetes mellitus without complications
CPT/HCPCS: 74177; Q9967

== ENCOUNTER → 2022-01-25 | Outpatient (CLI) | payer OTHER ==
[~2022-01-25] MED LIST changes: -ISOVUE-370 76% 100ML VIAL As Ordered ONE
== END ==
LOC: M RAD 12:38
PROVIDERS: ATTEND Physician Assistant
DX: R91.1 Solitary pulmonary nodule (principal); F17.218 Nicotine dependence, cigarettes, with other nicotine-induced disorders

== ENCOUNTER → 2022-07-17 | Outpatient (CLI) | payer OTHER | LOC: M RAD 08:27 | PROVIDERS: ATTEND Internal Medicine Gastroenterology | DX: K80.50 Calculus of bile duct without cholangitis or cholecystitis without obstruction (principal); R16.2 Hepatomegaly with splenomegaly, not elsewhere classified; Z96.89 Presence of other specified functional implants; Z90.49 Acquired absence of other specified parts of digestive tract ==

== ENCOUNTER → 2023-03-09 | Outpatient (CLI) | payer OTHER ==
[~2023-03-09] MED LIST changes: +ALBU8.5H PO; +APAP325T4 PO; +ATOR1TAB21 PO; +BUPR-71 PO; +FLUT1INH3 INH; +FURO20TA2 PO; +OMEP40CA5 PO; +VITA200016 PO
== END ==
LOC: M RAD 16:05
PROVIDERS: ATTEND Physician Assistant
DX: Z12.2 Encounter for screening for malignant neoplasm of respiratory organs (principal); F17.218 Nicotine dependence, cigarettes, with other nicotine-induced disorders

== ENCOUNTER → 2023-06-11 | Outpatient (REF) | payer OTHER ==
[2023-06-11 19:19] LABS: CREATININE, URINE 24.6 MG/DL; MALB URINE SIEMENS < 3.0 MG/L; MAU/CREAT RATIO 12.1 MCG/MG (0.0-30.0)
== END ==
LOC: M LAB REF 17:55
PROVIDERS: ATTEND Physician Assistant
DX: E11.9 Type 2 diabetes mellitus without complications (principal)

== ENCOUNTER → 2023-07-04 | Outpatient (CLI) | payer OTHER ==
[2023-07-04 10:16] LABS: HEMATOCRIT 43.4 % (36.0-47.0); HEMOGLOBIN 14.4 g/dl (12.0-15.5); MEAN CORPUSCULAR HGB CONC 33.2 g/dl (32.0-36.5); MEAN CORPUSCULAR VOLUME 84.3 fl (80.0-96.0); PLATELET COUNT, AUTOMATED 120 10^3/uL (150-450); RED BLOOD COUNT 5.15 10^6/uL (4.00-5.40); WHITE BLOOD COUNT 4.1 10^3/uL (4.0-10.0)
[2023-07-04 10:41] LABS: ALBUMIN 3.7 G/DL (3.2-5.2); ALKALINE PHOSPHATASE 285 U/L (46-116); ALT/SGPT 33 U/L (7.0-40); AST/SGOT 27 U/L (<34); BILIRUBIN,TOTAL 0.6 MG/DL (0.3-1.2); BLOOD UREA NITROGEN 10 MG/DL (9-23); CALCIUM LEVEL 9.4 MG/DL (8.3-10.6); CARBON DIOXIDE LEVEL 28 MMOL/L (20-31); CHLORIDE LEVEL 108 MMOL/L (98-107); CHOLESTEROL LEVEL 181 MG/DL (<200); CHOLESTEROL RISK RATIO 4.24 (<5); CREATININE FOR GFR 0.75 MG/DL (0.55-1.30); GLOMERULAR FILTRATION RATE > 60.0 (>45); GLUCOSE, FASTING 145 MG/DL (74-106); HDL CHOLESTEROL 42.6 MG/DL (>40); LDL CHOLESTEROL 119.8 MG/DL (<100); NON-HDL-C 138.4 MG/DL; POTASSIUM SERUM 4.8 MMOL/L (3.5-5.1); SODIUM LEVEL 143 MMOL/L (136-145); TRIGLYCERIDES LEVEL 93 MG/DL (<150)
[2023-07-04 10:43] LABS: TOTAL 25(OH) VITAMIN D 33.9 NG/ML (20.0-100.0)
== END ==
LOC: M LAB 09:50
PROVIDERS: ATTEND Physician Assistant
DX: E11.9 Type 2 diabetes mellitus without complications (principal); E55.9 Vitamin D deficiency, unspecified; F17.210 Nicotine dependence, cigarettes, uncomplicated

== ENCOUNTER 2023-10-15 14:27 | Emergency (ER) | payer OTHER ==
[~2023-10-15] VITALS: Ht 162.6 cm; Wt 94.7 kg
[~2023-10-15 14:27] MED LIST changes: -FLON1SPR; +FLON1SPR NARES
[2023-10-15] MEDS ORDERED: FLUT1AER6 (14:38)
[2023-10-15] MEDS ORDERED: GABA-282 (14:38)
[2023-10-15] MEDS ORDERED: IBUP200C28 PO (14:38)
[2023-10-15 16:41] LABS: BASO % 0.3 % (0.0-1.0); EOS % 0.3 % (0.0-3.0); HEMATOCRIT 42.9 % (36.0-47.0); HEMOGLOBIN 14.1 g/dl (12.0-15.5); LYMPH # 0.6 10^3/uL (1.5-5.0); LYMPH % 14.4 % (24.0-44.0); MEAN CORPUSCULAR HEMOGLOBIN 26.9 pg (27.0-33.0); MEAN CORPUSCULAR HGB CONC 32.9 g/dl (32.0-36.5); MEAN CORPUSCULAR VOLUME 81.7 fl (80.0-96.0); MONO # 0.2 10^3/uL (0.0-0.8); MONO % 3.9 % (2.0-8.0); NEUTROPHILS # 3.1 10^3/uL (1.5-8.5); NEUTROPHILS % 80.8 % (36.0-66.0); PLATELET COUNT, AUTOMATED 108 10^3/uL (150-450); RED BLOOD COUNT 5.25 10^6/uL (4.00-5.40); WHITE BLOOD COUNT 3.8 10^3/uL (4.0-10.0)
[2023-10-15 17:05] LABS: ALBUMIN 3.1 G/DL (3.2-5.2); BILIRUBIN,DIRECT 0.5 MG/DL (<0.4); BILIRUBIN,TOTAL 0.9 MG/DL (0.3-1.2); CALCIUM LEVEL 8.8 MG/DL (8.3-10.6); CREATININE FOR GFR 1.61 MG/DL (0.55-1.30); GLOMERULAR FILTRATION RATE 34.6 (>45); POTASSIUM SERUM 3.9 MMOL/L (3.5-5.1); TOTAL PROTEIN 6.7 G/DL (5.7-8.2)
[2023-10-15] MEDS: NS 1,000 ML IV ONE ×2 (19:15→23:37)
[2023-10-15] MEDS: ONDANSETRON 4MG 2ML VIAL IV ONE (19:31)
[2023-10-15] MEDS: LORazepam 2 MG/ML 1ML VIAL IV STA (19:32)
[2023-10-15 20:24] LABS: INR 1.16; PARTIAL THROMBOPLASTIN TIME 31.2 SECONDS (24.8-34.2); PROTHROMBIN TIME 14.5 SECONDS (12.5-14.5)
[2023-10-15] MEDS: MEROPENEM INJ 1 GM in IV 1 EA IV ONE (22:39)
[2023-10-16] MEDS: NS 1,000 ML in IV 1 EA IV ONE (01:59)
[2023-10-16] MEDS ORDERED: NICOTINE 21MG/24HR 1 EA TRANSDERMAL TD PRN (02:40)
[2023-10-16] MEDS ORDERED: GLUCOSE 4 GM CHEW PO PRN (03:35)
[2023-10-16] MEDS ORDERED: GLUCAGON INJ 1MG VIAL SC PRN (03:35)
[2023-10-16] MEDS: NS 1,000 ML IV ONE ×2 (03:35→03:41)
[2023-10-16] MEDS ORDERED: DEXTROSE 50% 50ML SYRINGE IV PRN (03:35)
[2023-10-16] MEDS ORDERED: D3 H2000 PO (04:24)
[2023-10-16] MEDS ORDERED: GABA-282 PO (04:24)
[2023-10-16] MEDS ORDERED: ALBU2.5V10 INH (04:24)
[2023-10-16] MEDS ORDERED: ATOR40TA75 PO (04:24)
[2023-10-16] MEDS ORDERED: IPRA2IN INH (04:24)
[2023-10-16] MEDS ORDERED: HOME MED LIST COMPLETE! XX SCH (04:30)
[2023-10-16] MEDS: MEROPENEM INJ 1 GM in IV 1 EA IV SCH (04:35)
[2023-10-16] MEDS: NS 1,000 ML IV SCH (05:34)
[2023-10-16] MEDS: HEPARIN SOD (PORCINE) 5000UNITS/ML 1ML VIAL/SYRINGE SQ SCH (05:39)
[2023-10-16] MEDS: INSULIN LISPRO (NovoLOG) PER UNIT SC SCH (05:39)
[2023-10-16] MEDS: IPRATROPIUM 0.5MG/ALBUTEROL 2.5MG INH SOL UD 3ML (DUONEB) NEB PRN (06:31)
[2023-10-16] MEDS: ACETAMINOPHEN TAB 650MG DOSE (2X325MG) PO PRN (08:32)
[2023-10-16] MEDS: buPROPion **SR TABLET** (ZYBAN) 150MG PO SCH (09:00)
[2023-10-16] MEDS: MORPHINE 4 MG/ML 1ML VIAL IV PRN (10:12)
[2023-10-16 10:39] VITALS: BP 110/59; TEMP 97.7; O2SAT 95
[2023-10-16] MEDS ORDERED: ATORVASTATIN 20 MG TAB PO SCH (21:00)
== END 2023-10-16 10:43 | disposition short-term general hospital (02) ==
LOC: M ED 14:27
DX: R65.10 Systemic inflammatory response syndrome (SIRS) of non-infectious origin without acute organ dysfunction (principal); K80.50 Calculus of bile duct without cholangitis or cholecystitis without obstruction; N17.9 Acute kidney failure, unspecified; R16.2 Hepatomegaly with splenomegaly, not elsewhere classified; E11.9 Type 2 diabetes mellitus without complications; E78.5 Hyperlipidemia, unspecified; G47.33 Obstructive sleep apnea (adult) (pediatric); J44.9 Chronic obstructive pulmonary disease, unspecified; Z87.19 Personal history of other diseases of the digestive system; Z90.49 Acquired absence of other specified parts of digestive tract; F17.200 Nicotine dependence, unspecified, uncomplicated; Z79.899 Other long term (current) drug therapy; Z88.0 Allergy status to penicillin
CPT/HCPCS: 74181; 76775; 80048; 80076; 81001; 83605; 83690; 85025; 85610; 85730; 87040; 87086; 93005; 94640; 94760; 96361; 96365; 96375; 96376; 99285; J2060; J2184; J2405

== ENCOUNTER → 2023-11-15 | Outpatient (CLI) | payer OTHER ==
[~2023-11-15] MED LIST changes: +ALBU2.5V10 INH; +ATOR40TA75 PO; +D3 H2000 PO; +FLUT1AER6; +GABA-282; +GABA-282 PO; +IBUP200C28 PO; +IPRA2IN INH
[2023-11-15 15:49] LABS: BASO % 0.6 % (0.0-1.0); EOS % 1.3 % (0.0-3.0); HEMATOCRIT 35.6 % (36.0-47.0); HEMOGLOBIN 11.8 g/dl (12.0-15.5); LYMPH # 0.9 10^3/uL (1.5-5.0); LYMPH % 26.6 % (24.0-44.0); MEAN CORPUSCULAR HGB CONC 33.1 g/dl (32.0-36.5); MEAN CORPUSCULAR VOLUME 81.5 fl (80.0-96.0); MONO # 0.3 10^3/uL (0.0-0.8); MONO % 8.5 % (2.0-8.0); NEUTROPHILS % 61.7 % (36.0-66.0); PLATELET COUNT, AUTOMATED 102 10^3/uL (150-450); RED BLOOD COUNT 4.37 10^6/uL (4.00-5.40); WHITE BLOOD COUNT 3.2 10^3/uL (4.0-10.0)
[2023-11-15 15:59] LABS: HEMOGLOBIN A1c 6.2 % (4.0-6.0)
[2023-11-15 16:13] LABS: BLOOD UREA NITROGEN 8 MG/DL (9-23); CALCIUM LEVEL 8.6 MG/DL (8.3-10.6); CARBON DIOXIDE LEVEL 24 MMOL/L (20-31); CHLORIDE LEVEL 108 MMOL/L (98-107); CREATININE FOR GFR 0.61 MG/DL (0.55-1.30); GLOMERULAR FILTRATION RATE > 60.0 (>45); GLUCOSE, FASTING 96 MG/DL (74-106); POTASSIUM SERUM 4.4 MMOL/L (3.5-5.1); SODIUM LEVEL 137 MMOL/L (136-145)
== END ==
LOC: M LAB 15:16
PROVIDERS: ATTEND Physician Assistant
DX: D61.818 Other pancytopenia (principal); E11.9 Type 2 diabetes mellitus without complications; R60.0 Localized edema

== ENCOUNTER 2024-05-05 13:33 | Emergency (ER) | payer OTHER ==
[~2024-05-05] VITALS: Ht 162.6 cm; Wt 90.7 kg
[~2024-05-05 13:33] MED LIST changes: +GABA-1172; +GABA-1172 PO; -GABA-282; -GABA-282 PO
[2024-05-05 15:42] LABS: BASO % 0.3 % (0.0-1.0); EOS % 0.3 % (0.0-3.0); HEMATOCRIT 39.6 % (36.0-47.0); HEMOGLOBIN 12.9 g/dl (12.0-15.5); LYMPH # 0.5 10^3/uL (1.5-5.0); LYMPH % 16.2 % (24.0-44.0); MEAN CORPUSCULAR HEMOGLOBIN 26.3 pg (27.0-33.0); MEAN CORPUSCULAR HGB CONC 32.6 g/dl (32.0-36.5); MEAN CORPUSCULAR VOLUME 80.8 fl (80.0-96.0); MONO # 0.2 10^3/uL (0.0-0.8); MONO % 6.6 % (2.0-8.0); NEUTROPHILS # 2.3 10^3/uL (1.5-8.5); NEUTROPHILS % 76.3 % (36.0-66.0)
[2024-05-05] MEDS: IPRATROPIUM 0.5MG/ALBUTEROL 2.5MG INH SOL UD 3ML (DUONEB) NEB SCH (16:00)
[2024-05-05 16:03] LABS: PLATELET COUNT, AUTOMATED 58 10^3/uL (150-450)
[2024-05-05 16:09] LABS: INR 1.03; PROTHROMBIN TIME 13.8 SECONDS (12.5-14.5)
[2024-05-05 16:15] LABS: CPK CREATINE PHOSPHOKINASE 81 U/L (34-145)
[2024-05-05 16:16] LABS: ALBUMIN 3.3 G/DL (3.2-5.2); ALKALINE PHOSPHATASE 144 U/L (35-104); ALT/SGPT 22 U/L (7.0-40); AST/SGOT 19 U/L (<34); BILIRUBIN,DIRECT 0.2 MG/DL (<0.4); BILIRUBIN,TOTAL 0.6 MG/DL (0.3-1.2); BLOOD UREA NITROGEN 13 MG/DL (9-23); CALCIUM LEVEL 8.3 MG/DL (8.3-10.6); CARBON DIOXIDE LEVEL 24 MMOL/L (20-31); CHLORIDE LEVEL 102 MMOL/L (98-107); CK-MB VALUE MASS < 1.0 NG/ML (<3.6); CREATININE FOR GFR 0.63 MG/DL (0.55-1.30); GLOMERULAR FILTRATION RATE > 60.0 (>45); GLUCOSE, FASTING 156 MG/DL (74-106); MB/CK RELATIVE INDEX 1.23 (< OR =4); SODIUM LEVEL 138 MMOL/L (136-145); TOTAL PROTEIN 6.9 G/DL (5.7-8.2)
[2024-05-05] MEDS: methylPREDNISolone 125MG 2ML VIAL IV ONE (16:22)
[2024-05-05] MEDS ORDERED: URSO1TAB8 (17:06)
[2024-05-05 17:07] LABS: VENOUS BASE EXCESS -0.9 (-2.0-2.0); VENOUS HCO3 22.5 MMOL/L (23.0-27.0); VENOUS O2 SATURATION 98.6 % (60.0-80.0); VENOUS PARTIAL PRESSURE CO2 33.7 mmHg (38.0-50.0); VENOUS PARTIAL PRESSURE O2 142.6 mmHg (30.0-50.0); VENOUS PH 7.443 UNITS (7.330-7.430); VENOUS STANDARD HCO3 23.8 MMOL/L; VENOUS TOTAL CO2 23.6 MMOL/L (24.0-28.0)
[2024-05-05 17:44] VITALS: O2SAT 89
[2024-05-05] MEDS ORDERED: PRED20TA PO (17:50)
[2024-05-05] MEDS ORDERED: OSEL75CA PO (17:50)
[2024-05-05 17:59] VITALS: BP 150/72; TEMP 98; O2SAT 90
== END 2024-05-05 18:19 | disposition home or self-care (01) ==
LOC: EDBD 13:33 → M ED 13:33
DX: J44.1 Chronic obstructive pulmonary disease with (acute) exacerbation (principal); J09.X2 Influenza due to identified novel influenza A virus with other respiratory manifestations; E11.9 Type 2 diabetes mellitus without complications; Z79.84 Long term (current) use of oral hypoglycemic drugs; Z79.899 Other long term (current) drug therapy; Z88.0 Allergy status to penicillin
CPT/HCPCS: 71045; 80048; 80076; 82550; 82553; 82803; 83880; 84484; 85025; 85049; 85055; 85610; 87486; 87581; 87633; 87798; 93005; 93041; 94640; 94760; 96374; 99285; J2919

== ENCOUNTER 2024-05-21 13:15 | Emergency (ER) | payer OTHER ==
[~2024-05-21] VITALS: Ht 162.6 cm; Wt 94.2 kg
[~2024-05-21 13:15] MED LIST changes: +OSEL75CA PO; +PRED20TA PO; +URSO1TAB8
[2024-05-21] MEDS: FAMOTIDINE 20MG/2ML VIAL IVP ONE (17:39)
[2024-05-21] MEDS: methylPREDNISolone 125MG 2ML VIAL IV ONE (17:39)
[2024-05-21] MEDS: diphenhydrAMINE 50MG/ML VIAL IV ONE (17:39)
[2024-05-21 17:41] LABS: BASO % 0.3 % (0.0-1.0); EOS % 0.6 % (0.0-3.0); HEMATOCRIT 38.9 % (36.0-47.0); HEMOGLOBIN 12.8 g/dl (12.0-15.5); LYMPH # 0.8 10^3/uL (1.5-5.0); MEAN CORPUSCULAR HEMOGLOBIN 26.4 pg (27.0-33.0); MEAN CORPUSCULAR HGB CONC 32.9 g/dl (32.0-36.5); MEAN CORPUSCULAR VOLUME 80.2 fl (80.0-96.0); MONO # 0.3 10^3/uL (0.0-0.8); MONO % 7.2 % (2.0-8.0); NEUTROPHILS # 2.5 10^3/uL (1.5-8.5); NEUTROPHILS % 69.6 % (36.0-66.0); PLATELET COUNT, AUTOMATED 100 10^3/uL (150-450); RED BLOOD COUNT 4.85 10^6/uL (4.00-5.40); WHITE BLOOD COUNT 3.6 10^3/uL (4.0-10.0)
[2024-05-21 17:51] LABS: INR 0.98; PARTIAL THROMBOPLASTIN TIME 34.3 SECONDS (24.8-34.2); PROTHROMBIN TIME 13.3 SECONDS (12.5-14.5)
[2024-05-21 18:02] LABS: KETONE, URINE AUTO RFX NEGATIVE (NEGATIVE); LEUKOCYTE ESTERASE UR AUTO RFX NEGATIVE (NEGATIVE); MUCUS, URINE RFX SMALL (NEGATIVE); NITRITE, URINE AUTO RFX NEGATIVE (NEGATIVE); RBC, URINE AUTO RFX 0 /HPF (0-3); SQUAM EPITHELIAL CELL UR AURFX 8 /HPF (0-6); WBC, URINE AUTO RFX 0 /HPF (0-3)
[2024-05-21 18:19] LABS: ERYTHROCYTE SEDIMENTATION RATE 53 mm/hr (0-30)
[2024-05-21 18:20] LABS: ALKALINE PHOSPHATASE 193 U/L (35-104); ALT/SGPT 25 U/L (7.0-40); AST/SGOT 21 U/L (<34); BILIRUBIN,DIRECT 0.2 MG/DL (<0.4); BILIRUBIN,TOTAL 0.6 MG/DL (0.3-1.2); BLOOD UREA NITROGEN 7 MG/DL (9-23); C REACTIVE PROTEIN QUANTITATIV 1.91 MG/DL (<1.0); CALCIUM LEVEL 8.6 MG/DL (8.3-10.6); CARBON DIOXIDE LEVEL 25 MMOL/L (20-31); CHLORIDE LEVEL 109 MMOL/L (98-107); CREATININE FOR GFR 0.59 MG/DL (0.55-1.30); GLOMERULAR FILTRATION RATE > 60.0 (>45); GLUCOSE, FASTING 158 MG/DL (74-106); POTASSIUM SERUM 3.9 MMOL/L (3.5-5.1); SODIUM LEVEL 141 MMOL/L (136-145); TOTAL PROTEIN 6.7 G/DL (5.7-8.2)
[2024-05-21] MEDS ORDERED: CETI10CH PO (18:55)
[2024-05-21 19:39] VITALS: BP 136/74; TEMP 97.2; O2SAT 98
== END 2024-05-21 19:40 | disposition home or self-care (01) ==
LOC: M ED 13:15
DX: L95.9 Vasculitis limited to the skin, unspecified (principal); E11.9 Type 2 diabetes mellitus without complications; J44.9 Chronic obstructive pulmonary disease, unspecified; F17.200 Nicotine dependence, unspecified, uncomplicated; Z88.0 Allergy status to penicillin; Z79.51 Long term (current) use of inhaled steroids; Z79.899 Other long term (current) drug therapy
CPT/HCPCS: 71045; 80048; 80076; 81001; 85025; 85610; 85652; 85730; 86140; 93041; 94760; 96374; 96375; 99284; J1200; J2919; S0028

== ENCOUNTER → 2024-05-29 | Outpatient (REF) | payer OTHER ==
[~2024-05-29] MED LIST changes: +CETI10CH PO
== END ==
LOC: M LAB REF 16:31
PROVIDERS: ATTEND Nurse Practitioner Family
DX: R21 Rash and other nonspecific skin eruption (principal)

== ENCOUNTER → 2024-05-29 | Outpatient (REF) | payer OTHER | LOC: M LAB REF 16:17 | PROVIDERS: ATTEND Nurse Practitioner Family | DX: R09.81 Nasal congestion (principal) ==

== ENCOUNTER → 2024-06-04 | Outpatient (CLI) | payer OTHER | LOC: M RAD 12:42 | PROVIDERS: ATTEND Physician Assistant | DX: Z12.2 Encounter for screening for malignant neoplasm of respiratory organs (principal); F17.218 Nicotine dependence, cigarettes, with other nicotine-induced disorders; R91.8 Other nonspecific abnormal finding of lung field ==

== ENCOUNTER 2024-07-09 08:14 | Inpatient (IN) | payer OTHER ==
[~2024-07-09] VITALS: Ht 162.6 cm; Wt 94.3 kg
[2024-07-09 10:20] LABS: BASO % 0.4 % (0.0-1.0); EOS % 0.5 % (0.0-3.0); HEMATOCRIT 39.5 % (36.0-47.0); HEMOGLOBIN 13.1 g/dl (12.0-15.5); LYMPH # 0.9 10^3/uL (1.5-5.0); LYMPH % 11.2 % (24.0-44.0); MEAN CORPUSCULAR HEMOGLOBIN 26.1 pg (27.0-33.0); MEAN CORPUSCULAR HGB CONC 33.2 g/dl (32.0-36.5); MEAN CORPUSCULAR VOLUME 78.8 fl (80.0-96.0); MONO # 0.6 10^3/uL (0.0-0.8); MONO % 7.1 % (2.0-8.0); NEUTROPHILS # 6.6 10^3/uL (1.5-8.5); NEUTROPHILS % 80.3 % (36.0-66.0); PLATELET COUNT, AUTOMATED 161 10^3/uL (150-450); RED BLOOD COUNT 5.01 10^6/uL (4.00-5.40); WHITE BLOOD COUNT 8.2 10^3/uL (4.0-10.0)
[2024-07-09 10:40] LABS: LIPASE 28 U/L (12-53)
[2024-07-09 10:43] LABS: ALBUMIN 3.3 G/DL (3.2-5.2); ALKALINE PHOSPHATASE 287 U/L (35-104); ALT/SGPT 29 U/L (7.0-40); AST/SGOT 19 U/L (<34); BILIRUBIN,DIRECT 0.5 MG/DL (<0.4); BILIRUBIN,TOTAL 0.9 MG/DL (0.3-1.2); BLOOD UREA NITROGEN 14 MG/DL (9-23); CALCIUM LEVEL 9.1 MG/DL (8.3-10.6); CARBON DIOXIDE LEVEL 24 MMOL/L (20-31); CHLORIDE LEVEL 107 MMOL/L (98-107); CREATININE FOR GFR 0.56 MG/DL (0.55-1.30); GLOMERULAR FILTRATION RATE > 60.0 (>45); GLUCOSE, FASTING 173 MG/DL (74-106); POTASSIUM SERUM 3.9 MMOL/L (3.5-5.1); SODIUM LEVEL 139 MMOL/L (136-145); TOTAL PROTEIN 7.3 G/DL (5.7-8.2)
[2024-07-09 11:37] LABS: KETONE, URINE AUTO RFX 1+ mg/dL (NEGATIVE); LEUKOCYTE ESTERASE UR AUTO RFX NEGATIVE (NEGATIVE); NITRITE, URINE AUTO RFX NEGATIVE (NEGATIVE); RBC, URINE AUTO RFX 0 /HPF (0-3); SQUAM EPITHELIAL CELL UR AURFX 0 /HPF (0-6); WBC, URINE AUTO RFX 0 /HPF (0-3)
[2024-07-09] MEDS: ONDANSETRON 4MG 2ML VIAL IV ONE (11:49)
[2024-07-09] MEDS: MORPHINE 4 MG/ML 1ML VIAL IV ONE ×2 (11:49→15:14)
[2024-07-09] MEDS ORDERED: ISOVUE-370 76% 100ML VIAL As Ordered ONE (11:50)
[2024-07-09] MEDS ORDERED: HOME MED LIST COMPLETE! XX SCH (15:05)
[2024-07-09] MEDS: LORazepam 2 MG/ML 1ML VIAL IV ONE (15:14)
[2024-07-09] MEDS ORDERED: ONDANSETRON 4MG 2ML VIAL IV PRN ×2 (16:10→21:15)
[2024-07-09 16:39] LABS: C REACTIVE PROTEIN QUANTITATIV 2.97 MG/DL (<1.0)
[2024-07-09 16:46] LABS: PROCALCITONIN 0.18 ng/ml
[2024-07-09] MEDS ORDERED: GLUCAGON INJ 1MG VIAL ONE (17:37)
[2024-07-09] MEDS ORDERED: GLUCAGON INJ 1MG VIAL As Ordered ONE (17:37)
[2024-07-09 17:38] LABS: INR 1.12; PARTIAL THROMBOPLASTIN TIME 29.4 SECONDS (24.8-34.2); PROTHROMBIN TIME 14.7 SECONDS (12.5-14.5)
[2024-07-09] MEDS ORDERED: ROCURONIUM BROMIDE 50MG/5ML VIAL As Ordered ONE (17:41)
[2024-07-09] MEDS ORDERED: MIDAZOLAM INJ 2MG/2ML VIAL As Ordered ONE (17:41)
[2024-07-09] MEDS ORDERED: propofoL 200 MG/20 ML VIAL As Ordered ONE (17:41)
[2024-07-09] MEDS ORDERED: LIDOCAINE 2% 100MG/5ML SDV (FOR ANES.) As Ordered ONE (17:41)
[2024-07-09] MEDS ORDERED: fentaNYL 100 MCG/2 ML INJECTION As Ordered ONE (17:41)
[2024-07-09] MEDS ORDERED: ONDANSETRON 4MG 2ML VIAL As Ordered ONE (17:42)
[2024-07-09] MEDS ORDERED: dexmedeTOMIDine (4MCG/ML)200MCG/50ML BTL (PRECEDEX) As Ordered ONE (17:47)
[2024-07-09] MEDS: CIPROFLOXACIN/D5W 400 MG/200 ML BAG As Ordered ONE (18:01)
[2024-07-09 18:30] LABS: HEMOGLOBIN A1c 5.4 % (4.0-6.0)
[2024-07-09] MEDS ORDERED: SUCCINYLCHOLINE 100MG/5ML SYRINGE As Ordered ONE (18:31)
[2024-07-09] MEDS ORDERED: ACETAMINOPHEN 1000MG/100ML IV BAG As Ordered ONE (18:47)
[2024-07-09] MEDS: metroNIDAZOLE/NACL 500MG(5MG/ML) 100ML BAG As Ordered ONE (19:00)
[2024-07-09] MEDS ORDERED: TRANEXAMIC ACID 100 MG/ML 10ML VIAL As Ordered ONE (19:12)
[2024-07-09] MEDS ORDERED: LIDOCAINE W/EPINEPHRINE 1% 20ML VIAL As Ordered ONE (19:13)
[2024-07-09] MEDS ORDERED: LIDOCAINE 1% SDV 30ML VIAL ONE (19:13)
[2024-07-09] MEDS ORDERED: TRANEXAMIC ACID 100 MG/ML 10ML VIAL ONE (19:13)
[2024-07-09] MEDS ORDERED: LIDOCAINE 1% SDV 30ML VIAL As Ordered ONE (19:13)
[2024-07-09] MEDS ORDERED: LIDOCAINE W/EPINEPHRINE 1% 20ML VIAL ONE (19:14)
[2024-07-09] MEDS ORDERED: SUGAMMADEX SODIUM 500 MG/5 ML VIAL (BRIDION) As Ordered ONE (19:27)
[2024-07-09] MEDS: ADVAIR HFA 230/21MCG INHALER INH SCH (19:53)
[2024-07-09] MEDS: IPRATROPIUM 0.5MG/ALBUTEROL 2.5MG INH SOL UD 3ML NEB SCH (19:53)
[2024-07-09] MEDS ORDERED: LACRILUBE (AKWA TEARS) OPHTH OINT 3.5GM As Ordered ONE (20:28)
[2024-07-09] MEDS: FLUTICASONE PROP 0.05% NASAL SPRAY 16 GM (FLONASE) NARES SCH (21:00)
[2024-07-09] MEDS ORDERED: fentaNYL 100 MCG/2 ML INJECTION IV PRN (21:15)
[2024-07-09] MEDS ORDERED: GLUCOSE 4 GM CHEW PO PRN (21:15)
[2024-07-09] MEDS: LR 1,000 ML IV SCH (21:15)
[2024-07-09] MEDS ORDERED: HYDROMORPHONE HCL 0.5 MG/ 0.5 ML SYRINGE IV PRN (21:15)
[2024-07-09] MEDS ORDERED: INSULIN LISPRO (NovoLOG) PER UNIT SC PRN (21:15)
[2024-07-09] MEDS ORDERED: GLUCAGON INJ 1MG VIAL SC PRN (21:15)
[2024-07-09] MEDS ORDERED: oxyCODONE 5MG TAB PO PRN (21:15)
[2024-07-09] MEDS ORDERED: DEXTROSE 50% 50ML SYRINGE IV PRN (21:15)
[2024-07-09] MEDS: ALBUTEROL SULFATE 2.5MG/0.5ML INH CONCENTRATE NEB SOLN INH ONE (22:00)
[2024-07-09 22:22] VITALS: BP 140/74; TEMP 97.2; O2SAT 93
[2024-07-09] MEDS: PANTOPRAZOLE 40MG VIAL IV SCH (22:53)
[2024-07-09] MEDS: CIPROFLOXACIN 400 MG in IV 1 EA IV SCH (22:53)
[2024-07-09] MEDS: metroNIDAZOLE 500 MG in IV 1 EA IV SCH (22:54)
[2024-07-09] MEDS: NS (Normal Saline) 0.9% 1,000 ML IV SCH (22:54)
[2024-07-09 23:00] VITALS: BP 142/69; TEMP 97.2; O2SAT 93
[2024-07-10] VITALS (14 sets, daily range): BP systolic 116–134; BP diastolic 63–78; TEMP 97–98.4; O2SAT 90–95
[2024-07-10 01:43] LABS: HEMATOCRIT 33.6 % (36.0-47.0); MEAN CORPUSCULAR HEMOGLOBIN 25.8 pg (27.0-33.0); MEAN CORPUSCULAR HGB CONC 32.7 g/dl (32.0-36.5); MEAN CORPUSCULAR VOLUME 78.7 fl (80.0-96.0); PLATELET COUNT, AUTOMATED 168 10^3/uL (150-450); RED BLOOD COUNT 4.27 10^6/uL (4.00-5.40); WHITE BLOOD COUNT 9.5 10^3/uL (4.0-10.0)
[2024-07-10] MEDS: HYDROMORPHONE HCL 0.5 MG/ 0.5 ML SYRINGE IV PRN ×2 (03:02→09:31)
[2024-07-10 07:55] LABS: BASO % 0.2 % (0.0-1.0); HEMATOCRIT 35.3 % (36.0-47.0); HEMOGLOBIN 11.6 g/dl (12.0-15.5); LYMPH # 1.1 10^3/uL (1.5-5.0); LYMPH % 8.7 % (24.0-44.0); MEAN CORPUSCULAR HGB CONC 32.9 g/dl (32.0-36.5); MONO % 7.8 % (2.0-8.0); NEUTROPHILS # 10.4 10^3/uL (1.5-8.5); NEUTROPHILS % 82.8 % (36.0-66.0); PLATELET COUNT, AUTOMATED 216 10^3/uL (150-450); RED BLOOD COUNT 4.47 10^6/uL (4.00-5.40); WHITE BLOOD COUNT 12.5 10^3/uL (4.0-10.0)
[2024-07-10] MEDS: TIOTROPIUM BROM 2.5MCG/ACTUATION 4GM INH IH SCH (08:15)
[2024-07-10 08:36] LABS: ALBUMIN 2.5 G/DL (3.2-5.2); ALKALINE PHOSPHATASE 191 U/L (35-104); ALT/SGPT 23 U/L (7.0-40); AST/SGOT 16 U/L (<34); BILIRUBIN,TOTAL 0.7 MG/DL (0.3-1.2); BLOOD UREA NITROGEN 13 MG/DL (9-23); CALCIUM LEVEL 8.5 MG/DL (8.3-10.6); CARBON DIOXIDE LEVEL 23 MMOL/L (20-31); CHLORIDE LEVEL 109 MMOL/L (98-107); CREATININE FOR GFR 0.59 MG/DL (0.55-1.30); GLOMERULAR FILTRATION RATE > 60.0 (>45); GLUCOSE, FASTING 176 MG/DL (74-106); MAGNESIUM LEVEL 1.5 MG/DL (1.8-2.4); POTASSIUM SERUM 4.4 MMOL/L (3.5-5.1); SODIUM LEVEL 141 MMOL/L (136-145); TOTAL PROTEIN 5.8 G/DL (5.7-8.2)
[2024-07-10] MEDS: ENOXAPARIN 40MG/0.4ML SYRINGE (J1650 PER 10MG) SC SCH (09:00)
[2024-07-10] MEDS: MAG SULF 1GM/100ML (MAG RUN) 1 GM in IV 1 EA IV SCH (09:32)
[2024-07-11] VITALS (7 sets, daily range): BP systolic 116–128; BP diastolic 63–92; TEMP 97.2–98; O2SAT 91–94
[2024-07-11 06:51] LABS: BASO % 0.1 % (0.0-1.0); EOS % 0.1 % (0.0-3.0); HEMATOCRIT 30.7 % (36.0-47.0); HEMOGLOBIN 9.8 g/dl (12.0-15.5); LYMPH # 1.6 10^3/uL (1.5-5.0); LYMPH % 16.2 % (24.0-44.0); MEAN CORPUSCULAR HEMOGLOBIN 25.7 pg (27.0-33.0); MEAN CORPUSCULAR HGB CONC 31.9 g/dl (32.0-36.5); MEAN CORPUSCULAR VOLUME 80.4 fl (80.0-96.0); MONO % 9.5 % (2.0-8.0); NEUTROPHILS # 7.3 10^3/uL (1.5-8.5); NEUTROPHILS % 73.2 % (36.0-66.0); PLATELET COUNT, AUTOMATED 182 10^3/uL (150-450); RED BLOOD COUNT 3.82 10^6/uL (4.00-5.40)
[2024-07-11 07:17] LABS: ALBUMIN 2.3 G/DL (3.2-5.2); ALKALINE PHOSPHATASE 151 U/L (35-104); ALT/SGPT 17 U/L (7.0-40); AST/SGOT 12 U/L (<34); BILIRUBIN,TOTAL 0.7 MG/DL (0.3-1.2); BLOOD UREA NITROGEN 20 MG/DL (9-23); CALCIUM LEVEL 7.6 MG/DL (8.3-10.6); CARBON DIOXIDE LEVEL 24 MMOL/L (20-31); CHLORIDE LEVEL 109 MMOL/L (98-107); CREATININE FOR GFR 0.66 MG/DL (0.55-1.30); GLOMERULAR FILTRATION RATE > 60.0 (>45); GLUCOSE, FASTING 172 MG/DL (74-106); POTASSIUM SERUM 4.3 MMOL/L (3.5-5.1); SODIUM LEVEL 139 MMOL/L (136-145); TOTAL PROTEIN 5.3 G/DL (5.7-8.2)
[2024-07-12] VITALS (20 sets, daily range): BP systolic 113–133; BP diastolic 59–78; TEMP 97.1–97.8; O2SAT 91–96
[2024-07-12 05:48] LABS: BASO % 0.3 % (0.0-1.0); EOS % 0.6 % (0.0-3.0); HEMATOCRIT 29.6 % (36.0-47.0); HEMOGLOBIN 9.4 g/dl (12.0-15.5); LYMPH # 1.4 10^3/uL (1.5-5.0); LYMPH % 21.2 % (24.0-44.0); MEAN CORPUSCULAR HEMOGLOBIN 25.5 pg (27.0-33.0); MEAN CORPUSCULAR HGB CONC 31.8 g/dl (32.0-36.5); MEAN CORPUSCULAR VOLUME 80.4 fl (80.0-96.0); MONO # 0.5 10^3/uL (0.0-0.8); MONO % 6.9 % (2.0-8.0); NEUTROPHILS # 4.7 10^3/uL (1.5-8.5); NEUTROPHILS % 70.3 % (36.0-66.0); PLATELET COUNT, AUTOMATED 161 10^3/uL (150-450); RED BLOOD COUNT 3.68 10^6/uL (4.00-5.40); WHITE BLOOD COUNT 6.7 10^3/uL (4.0-10.0)
[2024-07-12 06:11] LABS: ALBUMIN 2.1 G/DL (3.2-5.2); ALKALINE PHOSPHATASE 140 U/L (35-104); ALT/SGPT 12 U/L (7.0-40); AST/SGOT 9 U/L (<34); BILIRUBIN,TOTAL 0.5 MG/DL (0.3-1.2); BLOOD UREA NITROGEN 19 MG/DL (9-23); CALCIUM LEVEL 7.7 MG/DL (8.3-10.6); CARBON DIOXIDE LEVEL 24 MMOL/L (20-31); CHLORIDE LEVEL 111 MMOL/L (98-107); CREATININE FOR GFR 0.55 MG/DL (0.55-1.30); GLOMERULAR FILTRATION RATE > 60.0 (>45); GLUCOSE, FASTING 132 MG/DL (74-106); MAGNESIUM LEVEL 1.8 MG/DL (1.8-2.4); POTASSIUM SERUM 4.1 MMOL/L (3.5-5.1); SODIUM LEVEL 143 MMOL/L (136-145); TOTAL PROTEIN 5.1 G/DL (5.7-8.2)
[2024-07-12] MEDS: buPROPion **SR TABLET** (ZYBAN) 150MG PO SCH (20:11)
[2024-07-13] VITALS (39 sets, daily range): BP systolic 123–139; BP diastolic 71–89; TEMP 97–98.8; O2SAT 82–95
[2024-07-13 05:23] LABS: BASO % 0.3 % (0.0-1.0); EOS % 0.4 % (0.0-3.0); HEMATOCRIT 34.1 % (36.0-47.0); HEMOGLOBIN 11.1 g/dl (12.0-15.5); LYMPH # 1.7 10^3/uL (1.5-5.0); LYMPH % 16.8 % (24.0-44.0); MEAN CORPUSCULAR HEMOGLOBIN 25.6 pg (27.0-33.0); MEAN CORPUSCULAR HGB CONC 32.6 g/dl (32.0-36.5); MEAN CORPUSCULAR VOLUME 78.8 fl (80.0-96.0); MONO # 0.6 10^3/uL (0.0-0.8); MONO % 5.9 % (2.0-8.0); NEUTROPHILS # 7.6 10^3/uL (1.5-8.5); NEUTROPHILS % 75.7 % (36.0-66.0); PLATELET COUNT, AUTOMATED 217 10^3/uL (150-450); RED BLOOD COUNT 4.33 10^6/uL (4.00-5.40)
[2024-07-13 05:56] LABS: ALBUMIN 2.3 G/DL (3.2-5.2); ALKALINE PHOSPHATASE 165 U/L (35-104); ALT/SGPT 13 U/L (7.0-40); AST/SGOT 12 U/L (<34); BILIRUBIN,TOTAL 0.6 MG/DL (0.3-1.2); BLOOD UREA NITROGEN 17 MG/DL (9-23); CARBON DIOXIDE LEVEL 22 MMOL/L (20-31); CHLORIDE LEVEL 109 MMOL/L (98-107); CREATININE FOR GFR 0.58 MG/DL (0.55-1.30); GLOMERULAR FILTRATION RATE > 60.0 (>45); GLUCOSE, FASTING 169 MG/DL (74-106); MAGNESIUM LEVEL 1.7 MG/DL (1.8-2.4); SODIUM LEVEL 140 MMOL/L (136-145); TOTAL PROTEIN 5.5 G/DL (5.7-8.2)
[2024-07-13] MEDS: VITAMIN D 1,000 INTERNATIONAL UNITS TABLET PO SCH (08:51)
[2024-07-13] MEDS: MAG SULF 1GM/100ML (MAG RUN) 1 GM in IV 1 EA IV ONE (08:52)
[2024-07-13] MEDS: GABAPENTIN 300 MG CAP PO SCH (09:00)
[2024-07-13] MEDS: IPRATROPIUM 0.5MG/ALBUTEROL 2.5MG INH SOL UD 3ML NEB PRN (11:47)
[2024-07-13 13:04] LABS: CK-MB VALUE MASS < 1.0 NG/ML (<3.6)
[2024-07-13 13:06] LABS: CPK CREATINE PHOSPHOKINASE 43 U/L (34-145); MB/CK RELATIVE INDEX 2.32 (< OR =4)
[2024-07-13 13:38] LABS: ABG BASE EXCESS -1.9 (-2.0-2.0); ABG HCO3 21.1 MMOL/L (22.0-26.0); ABG O2 SATURATION 94.6 % (95.0-99.0); ABG PARTIAL PRESSURE CO2 30.9 mmHg (35.0-45.0); ABG PARTIAL PRESSURE O2 70.9 mmHg (75.0-100.0); ABG STANDARD HCO3 22.9 MMOL/L. (22.0-26.0); ABG TOTAL CO2 22.1 MMOL/L (23.0-31.0); ABG pH (ARTERIAL) 7.453 UNITS (7.350-7.450)
[2024-07-13] MEDS: metroNIDAZOLE (FLAGYL) 500MG TABLET PO SCH (13:49)
[2024-07-13 14:55] LABS: CK-MB VALUE MASS < 1.0 NG/ML (<3.6)
[2024-07-13 15:00] LABS: CPK CREATINE PHOSPHOKINASE 39 U/L (34-145); MB/CK RELATIVE INDEX 2.56 (< OR =4)
[2024-07-13] MEDS ORDERED: VANCOMYCIN HCL 1,000 MG, VIAL MATE ADAPTER 1 EACH in NS 250 ML IV SCH (15:10)
[2024-07-13] MEDS: MEROPENEM INJ 1 GM in IV 1 EA IV SCH (16:49)
[2024-07-13] MEDS ORDERED: dexmedeTOMidine 200 MCG in IV 1 EA IV SCH (17:20)
[2024-07-13] MEDS: AZITHROMYCIN INJ 500 MG, VIAL MATE ADAPTER 1 EACH in NS 250 ML IV SCH (17:29)
[2024-07-13] MEDS ORDERED: CIPROFLOXACIN 500MG TABLET PO SCH (18:00)
[2024-07-13] MEDS: BUDESONIDE 0.5 MG/2 ML INHALATION SUSPENSION NEB SCH (19:23)
[2024-07-13] MEDS: GLYCOPYRROLATE INJ 0.2 MG/ML 2 ML VIAL NEB SCH (19:23)
[2024-07-13] MEDS: FORMOTEROL FUMARATE 20 MCG/2 ML INHALATION SOLUTION (PERFOROMIST) INH SCH (19:23)
[2024-07-13 19:58] LABS: ABG BASE EXCESS -3.7 (-2.0-2.0); ABG HCO3 19.5 MMOL/L (22.0-26.0); ABG O2 SATURATION 96.8 % (95.0-99.0); ABG STANDARD HCO3 21.4 MMOL/L. (22.0-26.0); ABG TOTAL CO2 20.4 MMOL/L (23.0-31.0)
[2024-07-13] MEDS: methylPREDNISolone 500 MG, VIAL MATE ADAPTER 1 EACH in NS 100 ML IV ONE (20:20)
[2024-07-13] MEDS: VANCOMYCIN HCL 1,750 MG, VIAL MATE ADAPTER 1 EACH in NS 500 ML IV ONE (20:30)
[2024-07-13] MEDS: OMEPRAZOLE 20MG CAP PO SCH (21:15)
[2024-07-14] VITALS (11 sets, daily range): BP systolic 105–134; BP diastolic 63–91; TEMP 96.8–98.7; O2SAT 91–98
[2024-07-14 05:18] LABS: BASO % 0.1 % (0.0-1.0); HEMATOCRIT 34.3 % (36.0-47.0); HEMOGLOBIN 11.2 g/dl (12.0-15.5); LYMPH # 0.8 10^3/uL (1.5-5.0); LYMPH % 8.1 % (24.0-44.0); MEAN CORPUSCULAR HEMOGLOBIN 25.7 pg (27.0-33.0); MEAN CORPUSCULAR HGB CONC 32.7 g/dl (32.0-36.5); MEAN CORPUSCULAR VOLUME 78.7 fl (80.0-96.0); MONO # 0.1 10^3/uL (0.0-0.8); MONO % 0.7 % (2.0-8.0); NEUTROPHILS # 8.9 10^3/uL (1.5-8.5); NEUTROPHILS % 90.4 % (36.0-66.0); PLATELET COUNT, AUTOMATED 190 10^3/uL (150-450); RED BLOOD COUNT 4.36 10^6/uL (4.00-5.40); WHITE BLOOD COUNT 9.9 10^3/uL (4.0-10.0)
[2024-07-14 05:40] LABS: ALBUMIN 2.3 G/DL (3.2-5.2); ALKALINE PHOSPHATASE 191 U/L (35-104); ALT/SGPT 11 U/L (7.0-40); AST/SGOT 12 U/L (<34); BILIRUBIN,TOTAL 0.5 MG/DL (0.3-1.2); BLOOD UREA NITROGEN 18 MG/DL (9-23); CALCIUM LEVEL 8.1 MG/DL (8.3-10.6); CARBON DIOXIDE LEVEL 20 MMOL/L (20-31); CHLORIDE LEVEL 108 MMOL/L (98-107); CREATININE FOR GFR 0.64 MG/DL (0.55-1.30); GLOMERULAR FILTRATION RATE > 60.0 (>45); GLUCOSE, FASTING 202 MG/DL (74-106); POTASSIUM SERUM 4.8 MMOL/L (3.5-5.1); SODIUM LEVEL 138 MMOL/L (136-145); TOTAL PROTEIN 5.6 G/DL (5.7-8.2)
[2024-07-14] MEDS: VANCOMYCIN HCL 1,250 MG, VIAL MATE ADAPTER 1 EACH in NS 250 ML IV SCH (06:09)
[2024-07-14] MEDS: methylPREDNISolone 125MG 2ML VIAL IV SCH (10:13)
[2024-07-14] MEDS: oxyCODONE 5MG TAB PO PRN ×2 (12:46→18:36)
[2024-07-14 15:39] LABS: PROCALCITONIN 0.15 ng/ml
[2024-07-14] MEDS: AZITHROMYCIN 250MG TABLET PO SCH (16:41)
[2024-07-14] MEDS: CIPROFLOXACIN 500MG TABLET PO SCH (18:41)
[2024-07-14] MEDS: FUROSEMIDE 20MG/2ML VIAL IV ONE (18:42)
[2024-07-14] MEDS: metroNIDAZOLE (FLAGYL) 500MG TABLET PO SCH (20:43)
[2024-07-15] VITALS (7 sets, daily range): BP systolic 106–118; BP diastolic 59–73; TEMP 97.1–98.2; O2SAT 91–96
[2024-07-15 05:07] LABS: BASO % 0.1 % (0.0-1.0); HEMATOCRIT 30.9 % (36.0-47.0); HEMOGLOBIN 10.2 g/dl (12.0-15.5); LYMPH # 1.1 10^3/uL (1.5-5.0); LYMPH % 10.4 % (24.0-44.0); MEAN CORPUSCULAR VOLUME 78.6 fl (80.0-96.0); MONO # 0.6 10^3/uL (0.0-0.8); NEUTROPHILS # 8.6 10^3/uL (1.5-8.5); NEUTROPHILS % 82.4 % (36.0-66.0); PLATELET COUNT, AUTOMATED 196 10^3/uL (150-450); RED BLOOD COUNT 3.93 10^6/uL (4.00-5.40); WHITE BLOOD COUNT 10.4 10^3/uL (4.0-10.0)
[2024-07-15 05:35] LABS: ALBUMIN 2.3 G/DL (3.2-5.2); ALKALINE PHOSPHATASE 177 U/L (35-104); ALT/SGPT 11 U/L (7.0-40); AST/SGOT 10 U/L (<34); BILIRUBIN,TOTAL 0.4 MG/DL (0.3-1.2); BLOOD UREA NITROGEN 20 MG/DL (9-23); CALCIUM LEVEL 8.6 MG/DL (8.3-10.6); CARBON DIOXIDE LEVEL 22 MMOL/L (20-31); CHLORIDE LEVEL 106 MMOL/L (98-107); GLOMERULAR FILTRATION RATE > 60.0 (>45); GLUCOSE, FASTING 179 MG/DL (74-106); POTASSIUM SERUM 4.1 MMOL/L (3.5-5.1); SODIUM LEVEL 137 MMOL/L (136-145); TOTAL PROTEIN 5.4 G/DL (5.7-8.2)
[2024-07-15 13:15] LABS: HEPATITIS B SURFACE ANTIGEN NEGATIVE (NEGATIVE)
[2024-07-15 13:35] LABS: HEPATITIS B CORE ANTIBODY IGM NEGATIVE (NEGATIVE)
[2024-07-15 13:36] LABS: HEPATITIS C VIRUS ABY INDEX 0.06 INDEX (<0.8)
[2024-07-15] MEDS: SPIRONOLACTONE 25 MG TAB PO SCH (16:00)
[2024-07-15] MEDS: FUROSEMIDE 40MG/4ML VIAL IV SCH (16:07)
[2024-07-16] VITALS: TEMP 97.6; O2SAT 94
[2024-07-16 04:30] VITALS: BP 110/66; TEMP 97; O2SAT 94
[2024-07-16 05:19] LABS: BASO % 0.1 % (0.0-1.0); HEMATOCRIT 33.8 % (36.0-47.0); HEMOGLOBIN 10.7 g/dl (12.0-15.5); LYMPH # 1.2 10^3/uL (1.5-5.0); LYMPH % 12.8 % (24.0-44.0); MEAN CORPUSCULAR HEMOGLOBIN 25.3 pg (27.0-33.0); MEAN CORPUSCULAR HGB CONC 31.7 g/dl (32.0-36.5); MEAN CORPUSCULAR VOLUME 79.9 fl (80.0-96.0); MONO # 0.6 10^3/uL (0.0-0.8); MONO % 6.5 % (2.0-8.0); NEUTROPHILS # 7.5 10^3/uL (1.5-8.5); NEUTROPHILS % 79.4 % (36.0-66.0); PLATELET COUNT, AUTOMATED 214 10^3/uL (150-450); RED BLOOD COUNT 4.23 10^6/uL (4.00-5.40); WHITE BLOOD COUNT 9.4 10^3/uL (4.0-10.0)
[2024-07-16 05:58] LABS: ALBUMIN 2.5 G/DL (3.2-5.2); ALKALINE PHOSPHATASE 188 U/L (35-104); ALT/SGPT 14 U/L (7.0-40); AST/SGOT 14 U/L (<34); BILIRUBIN,TOTAL 0.4 MG/DL (0.3-1.2); BLOOD UREA NITROGEN 21 MG/DL (9-23); CALCIUM LEVEL 8.7 MG/DL (8.3-10.6); CARBON DIOXIDE LEVEL 24 MMOL/L (20-31); CHLORIDE LEVEL 105 MMOL/L (98-107); CREATININE FOR GFR 0.72 MG/DL (0.55-1.30); GLOMERULAR FILTRATION RATE > 60.0 (>45); GLUCOSE, FASTING 164 MG/DL (74-106); MAGNESIUM LEVEL 1.9 MG/DL (1.8-2.4); POTASSIUM SERUM 4.4 MMOL/L (3.5-5.1); SODIUM LEVEL 137 MMOL/L (136-145); TOTAL PROTEIN 5.8 G/DL (5.7-8.2)
[2024-07-16 08:00] VITALS: BP 132/70; TEMP 97.1; O2SAT 98
[2024-07-16] MEDS: methylPREDNISolone 40MG 1ML VIAL IV SCH (08:12)
[2024-07-16 09:31] VITALS: O2SAT 94
[2024-07-16] MEDS ORDERED: OXYC-517 PO (09:42)
[2024-07-16] MEDS ORDERED: METR-265 PO (09:42)
[2024-07-16] MEDS ORDERED: ALDA25TA2 PO (09:42)
[2024-07-16] MEDS ORDERED: CIPR-249 PO (09:42)
[2024-07-16] MEDS ORDERED: PRED10TA2 PO (09:42)
[2024-07-16] MEDS ORDERED: FURO20TA2 PO (09:42)
== END 2024-07-16 11:25 | disposition home health service (06) | DRG 221 ==
LOC: M ED 08:14 → M ED INP 17:14 → M PCU 22:19 → M ICU 07-13 18:06
PROVIDERS: ADMIT Internal Medicine; ATTEND Internal Medicine
PROC: 0DN80ZZ Release Small Intestine, Open Approach (ICD-10-PCS; 2024-07-09)
PROC: 0WQF0ZZ Repair Abdominal Wall, Open Approach (ICD-10-PCS; 2024-07-09)
PROC: 30233N1 Transfusion of Nonautologous Red Blood Cells into Peripheral Vein, Percutaneous Approach (ICD-10-PCS; 2024-07-09)
PROC: 0DB80ZZ Excision of Small Intestine, Open Approach (ICD-10-PCS; principal; 2024-07-09 17:19)
PROC: B246ZZZ Ultrasonography of Right and Left Heart (ICD-10-PCS; 2024-07-14)
DX: K43.0 Incisional hernia with obstruction, without gangrene (principal); J96.01 Acute respiratory failure with hypoxia; I81 Portal vein thrombosis; J90 Pleural effusion, not elsewhere classified; R18.8 Other ascites; K55.1 Chronic vascular disorders of intestine; J44.1 Chronic obstructive pulmonary disease with (acute) exacerbation; E11.42 Type 2 diabetes mellitus with diabetic polyneuropathy; E87.70 Fluid overload, unspecified; E66.9 Obesity, unspecified; R16.1 Splenomegaly, not elsewhere classified; N28.1 Cyst of kidney, acquired; Z68.35 Body mass index [BMI] 35.0-35.9, adult; K74.60 Unspecified cirrhosis of liver; K66.0 Peritoneal adhesions (postprocedural) (postinfection); F39 Unspecified mood [affective] disorder; E78.5 Hyperlipidemia, unspecified; Z90.49 Acquired absence of other specified parts of digestive tract; F17.200 Nicotine dependence, unspecified, uncomplicated; K21.9 Gastro-esophageal reflux disease without esophagitis; K44.9 Diaphragmatic hernia without obstruction or gangrene; Z79.899 Other long term (current) drug therapy; Z88.0 Allergy status to penicillin; Z88.8 Allergy status to other drugs, medicaments and biological substances

== ENCOUNTER → 2024-08-04 | Outpatient (CLI) | payer MEDICAID, OTHER ==
[~2024-08-04] MED LIST changes: +ALDA25TA2 PO; +METR-265 PO; +OXYC-517 PO; +PRED10TA2 PO
[2024-08-04 15:31] LABS: BASO % 0.4 % (0.0-1.0); EOS # 0.1 10^3/uL (0.0-0.5); EOS % 2.3 % (0.0-3.0); HEMATOCRIT 30.5 % (36.0-47.0); HEMOGLOBIN 9.6 g/dl (12.0-15.5); LYMPH # 0.9 10^3/uL (1.5-5.0); LYMPH % 32.3 % (24.0-44.0); MEAN CORPUSCULAR HEMOGLOBIN 25.1 pg (27.0-33.0); MEAN CORPUSCULAR HGB CONC 31.5 g/dl (32.0-36.5); MEAN CORPUSCULAR VOLUME 79.6 fl (80.0-96.0); MONO # 0.2 10^3/uL (0.0-0.8); MONO % 8.4 % (2.0-8.0); NEUTROPHILS # 1.5 10^3/uL (1.5-8.5); NEUTROPHILS % 56.2 % (36.0-66.0); RED BLOOD COUNT 3.83 10^6/uL (4.00-5.40); WHITE BLOOD COUNT 2.6 10^3/uL (4.0-10.0)
[2024-08-04 16:03] LABS: ALBUMIN 2.5 G/DL (3.2-5.2); ALKALINE PHOSPHATASE 129 U/L (35-104); ALT/SGPT 21 U/L (7.0-40); AST/SGOT 19 U/L (<34); BILIRUBIN,TOTAL 0.3 MG/DL (0.3-1.2); BLOOD UREA NITROGEN 12 MG/DL (9-23); CALCIUM LEVEL 8.4 MG/DL (8.3-10.6); CARBON DIOXIDE LEVEL 23 MMOL/L (20-31); CHLORIDE LEVEL 110 MMOL/L (98-107); CREATININE FOR GFR 0.63 MG/DL (0.55-1.30); GLOMERULAR FILTRATION RATE > 90.0 (>45); GLUCOSE, FASTING 160 MG/DL (74-106); MAGNESIUM LEVEL 1.8 MG/DL (1.8-2.4); POTASSIUM SERUM 4.3 MMOL/L (3.5-5.1); SODIUM LEVEL 141 MMOL/L (136-145); TOTAL PROTEIN 5.7 G/DL (5.7-8.2)
[2024-08-04 16:11] LABS: PLATELET COUNT, AUTOMATED 89 10^3/uL (150-450)
== END ==
LOC: M LAB 14:36
PROVIDERS: ATTEND Nurse Practitioner Family
DX: K74.60 Unspecified cirrhosis of liver (principal)

== ENCOUNTER → 2024-08-15 | Outpatient (REF) | payer OTHER | LOC: M LAB REF 12:00 | PROVIDERS: ATTEND Nurse Practitioner Family | DX: D53.9 Nutritional anemia, unspecified (principal) ==

== ENCOUNTER → 2024-08-17 | Outpatient (CLI) | payer OTHER ==
[~2024-08-17] MED LIST changes: +ALBU8.5H; +BREO1INH PO; +CETI-24; +FERR325T3; +HEARTAB
[2024-08-17 16:17] LABS: BASO % 0.7 % (0.0-1.0); EOS % 1.3 % (0.0-3.0); HEMATOCRIT 30.2 % (36.0-47.0); HEMOGLOBIN 9.4 g/dl (12.0-15.5); LYMPH # 0.8 10^3/uL (1.5-5.0); LYMPH % 27.5 % (24.0-44.0); MEAN CORPUSCULAR HEMOGLOBIN 24.5 pg (27.0-33.0); MEAN CORPUSCULAR HGB CONC 31.1 g/dl (32.0-36.5); MEAN CORPUSCULAR VOLUME 78.6 fl (80.0-96.0); MONO # 0.2 10^3/uL (0.0-0.8); MONO % 6.9 % (2.0-8.0); NEUTROPHILS % 63.6 % (36.0-66.0); PLATELET COUNT, AUTOMATED 136 10^3/uL (150-450); RED BLOOD COUNT 3.84 10^6/uL (4.00-5.40); WHITE BLOOD COUNT 3.1 10^3/uL (4.0-10.0)
[2024-08-17 16:31] LABS: INR 0.99; PROTHROMBIN TIME 13.4 SECONDS (12.5-14.5)
== END ==
LOC: M LAB 11:45
PROVIDERS: ATTEND Nurse Practitioner Family
DX: R79.89 Other specified abnormal findings of blood chemistry (principal)